=== PATIENT | female | born 1970 | race Caucasian/White ===

== ENCOUNTER 2020-03-20 20:08 | Inpatient (IN) ==
--- NOTE | 2020-03-20 20:37 | DR.GENAD ---
HPI Time Seen Time Seen by Provider: 03/20/20 20:35 PCP Primary Care Physician: JOSE HPI Comment HPI Comment: PATIENT IS 49YR OLD FEMALE IN ER WITH FEVER, COUGH, SOB AND CHEST PAIN NOTED TOD[place]. COUGH STARTED 3 DAYS AGO AND COVID 19 TEST WAS DONE AND IS PENDING. SHE IS WEAK AND DRAINED OF ENERGY. CHEST PAIN IS TIGHTNESS AND IS 8/19. PATIENT DID NOT TAKE MEDICATION FOR PAIN. COUGH IS NON PRODUCTIVE. OXYGEN SATURATION 82% ON RA. IN ER. DENIES RECNT TRAVEL OR CAONTACT WITH COVID PATIENT. Complaint/Symptoms Chief Complaint Doctors Comments: INCREASING SOB, CHEST PAIN AND FEVER THAT STARTED TODAY. HAVE HAD COUGH FOR 3 DAYS. Chief Complaint:: PT AMBULATORY IN ED STATING SHE HAD KILGORE TEST SATURDAY AND TODAY SHE HAS A BURNING IN HER CHEST. C/O FEVER AND COLD SYMPTOMS WITH SOB. COVID-19 Coronavirus risk:travel/contact w/high risk person: No Has patient experienced Coronavirus symptoms: Yes Coronavirus symptoms experienced: Fever, Coughing and Shortness of Breath Nurses notes reviewed Nurses Notes Review: Yes Source History Provided: Patient Mode of Arrival Mode of Arrival: Ambulatory Timing Onset of Chief Complaint: 03/17/20 Came on: Suddenly Duration Duration: Constant Duration: Days Location Location: HISTORY DIABETES AND HTN. Severity Severity: Moderate Modifying Factors Worsens:: EXERTION. Improves:: REST. Associated Signs and Symptoms Associated Signs and Symptoms: FEVER, COUGH. PMH PMH Past Medical History: Yes Past Medical History: Diabetes and Hypertension Past Surgical History: Yes Surgical History: , Cholecystectomy and Tonsillectomy Family History History of Family Medical Conditions: Yes Family Medical History: Diabetes Mellitus, Cancer and Hypertension Social History Does patient currently use any type of tobacco product: No Have you used tobacco products in the last 12 months: No Type of Tobacco Use: None Does any household member use tobacco: No Alcohol Use: None Do you use any recreational Drugs:: No Lives With: Alone Lives Where: Home Travel Risk Coronavirus risk:travel/contact w/high risk person: No Has patient experienced Coronavirus symptoms: Yes Coronavirus symptoms experienced: Fever, Coughing and Shortness of Breath Infectious screening In the last 2 months have you had wt loss of >10#?: NO Have you had fever, night sweats or hemotysis?: No Have you traveled outside the country in the last 6 months?: No Isolation: Droplet ROS Review of Systems Constitutional: See HPI, Fever, Weakness and Fatigue Eyes: No Symptoms Reported and See HPI; negative Blurred Vision and Diplopia ENTM: See HPI, Nose Congestion and Throat Pain; negative Ear Pain and Nose Discharge Respiratoy: See HPI, Non-Productive Cough, Short of Breath and Wheezing Cardiovascular: See HPI, Chest Pain and Palpitations; negative Edema Gastrointestinal/Abdominal: No Symptoms Reported and See HPI; negative Abdominal Pain, Diarrhea, Nausea and Vomiting Genitourinary: No Symptoms Reported and See HPI; negative Dysuria, Frequency and Hematuria Neurological: See HPI, Headache and Weakness; negative Dizziness Musculoskeletal: See HPI and Muscle Pain; negative Back Pain Integumentary: No Symptoms Reported and See HPI; negative Change in Color, Rash and Juandice Hematologic/Lymphatic: No Symptoms Reported and See HPI; negative Easy Bruising and Swollen Glands Endocrine: No Symptoms Reported and See HPI; negative Increased Thirst and Increased Urine Psychiatric: No Symptoms Reported and See HPI All Other Systems: Reviewed and Negative PE Vital Signs Vitals: Temperature 98.6 F Pulse Rate 95 Respiratory Rate 36 Blood Pressure 164/76 O2 Sat by Pulse Oximetry 93 General Limitations: No Limitations General Appearance: Alert and In Distress Head Head Exam: Normal Inspection and Atraumatic Eyes Eye exam: Normal Appearance, PERRL and EOMI; negative Scleral Icterus and Conjunctival Injection ENT ENT Exam: Normal Exam and Normal External Ear Exam; negative Normal Oropharynx and TM's Normal Bilaterally External Ear Exam: Normal External Inspection; negative Mastoid Tenderness TM/Canal Exam: Bilateral: Normal Nose Exam: Normal Nose Exam; negative Sinus Tenderness, Nasal Deviation and Septal Hematoma Mouth Exam: Normal Inspection; negative Lip Swelling and Tongue Swelling Throat Exam: Tonsillar Erythema; negative Tonsillomegaly and Tonsillar Exudate Neck Neck Exam: Normal Inspection and Trachea Midline; negative Tenderness and Lymphadenopathy Chest Chest Inspection: Normal Inspection and Symmetric Chest Wall Rise; negative Tenderness Respiratory Respiratory Exam: Normal Lung Sounds Bilat and Respiratory Distress; negative Accessory Muscle Use and Chest Wall Tenderness Respiratory Exam: Bilateral: Wheezing and Bilateral: Rhonchi and Lower: Wheezing and Lower: Rhonchi Cardiovascular Cardiovascular Exam: Regular Rate, Normal Rhythm and Normal Heart Sounds; negat rica Systolic Murmur and Diastolic Murmur Abdominal Exam Abdominal Exam: Normal Inspection, Normal Bowel Sounds and Soft; negative Tenderness Extremities Extremities Exam: Normal Inspection Back Back Exam: Normal Inspection; negative (R) CVA Tenderness and (L) CVA Tenderness Neurologic Neurological Exam: Alert and Oriented X3 Psychiatric Psychiatric Exam: Normal Affect and Normal Mood Skin Skin Exam: Warm, Dry, Intact and Normal Color MDM Differential Diagnosis Differential Diagnosis: PNEUMONIA, HYPOXIA, BRONCHITIS, COVID 19, [place], ANGINA, HTN, DM. COURSE Treatment Treatment: SEE ORDERS. NS 100CC/HR, ROCEPHIN 1GM IVPB. IN ER. OXYGEN 5L/M, OXYGEN SATURATION IMPROVED. Consultation Consultation Comments: DISCUSSED PATIENT WITH DR. ZUÑIGA, SHE WILL ADMIT PATIENT. Education/Counseling Education/Counseling: Patient Educated On: Diagnosis ROR Labs Reviewed Laboratory Results Reviewed?: Yes Result Diagrams: 03/23/20 05:30 03/23/20 05:30 Laboratory: 03/20/20 22:15 Blood Blood Culture - Preliminary 03/20/20 22:10 Blood Blood Culture - Preliminary WBC 4.9 X10^3/uL (3.6-10.0) 03/20/20 22:15 RBC 4.82 X10^6/uL (3.5-5.4) 03/20/20 22:15 Hgb 11.9 g/dL (12.0-16.0) L 03/20/20 22:15 Hct 36.2 % (36.0-47.0) 03/20/20 22:15 MCV 75.1 fL (80.0-100.0) L 03/20/20 22:15 MCH 24.7 pg (27.0-34.0) L 03/20/20 22:15 MCHC 32.9 g/dL (33.0-35.0) L 03/20/20 22:15 RDW 16.9 % (11.6-16.5) H 03/20/20 22:15 Plt Count 125 X10^3/uL (150.0-450.0) L 03/20/20 22:15 Plt Count Comment Decreased (ADEQUATE) A 03/20/20 22:15 MPV 9.2 fL (7.4-11.0) 03/20/20 22:15 Neut % (Auto) 71.8 % (42.0-75.0) 03/20/20 22:15 Lymph % (Auto) 19.7 % (21.0-51.0) L 03/20/20 22:15 [place] % (Auto) 7.9 % (0.0-13.0) 03/20/20 22:15 Eos % (Auto) 0.0 % (0.9-2.9) L 03/20/20 22:15 Baso % (Auto) 0.6 % (0.2-1.0) 03/20/20 22:15 Neut # (Auto) 3.5 x10^3/uL (2.2-4.8) 03/20/20 22:15 Lymph # (Auto) 1.0 X10^3/uL (1.3-2.9) L 03/20/20 22:15 [place] # (Auto) 0.4 x10^3/uL (0.3-0.8) 03/20/20 22:15 Eos # (Auto) 0.0 x10^3/uL (0.0-0.2) 03/20/20 22:15 Baso # (Auto) 0.0 X10^3/uL (0.0-0.1) 03/20/20 22:15 Absolute Nucleated RBC 0.0 /100WBC 03/20/20 22:15 Plt Morphology Comment Normal (NORMAL) 03/20/20 22:15 RBC Morphology Abnormal (NORMAL) A 03/20/20 22:15 Hypochromasia Slight A 03/20/20 22:15 Sample Site Lb 03/20/20 21:10 ABG pH 7.460 (7.35-7.45) H 03/20/20 21:10 ABG pCO2 37.0 mmHg (35.0-45.0) 03/20/20 21:10 ABG pO2 55.0 mmHg (80.0-100.0) L 03/20/20 21:10 ABG HCO3 26.3 mmol/L (22-26) H 03/20/20 21:10 ABG O2 Saturation 90.0 % (90-100) 03/20/20 21:10 ABG Base Excess 2.5 mmol/L (-2.0-2.0) H 03/20/20 21:10 Clarke Test Na 03/20/20 21:10 A-a Gradient 98.0 mmHg 03/20/20 21:10 FiO2 28.0 03/20/20 21:10 Blood Gas Comments [place] [facility] well-mtf 03/20/20 21:10 Sodium 138 mmol/L (136-145) 03/20/20 22:15 Corrected Sodium 140 mmol/L (136-145) 03/20/20 22:15 Potassium 3.3 mmol/L (3.5-5.1) L 03/20/20 22:15 Chloride 99 mmol/L (98-107) 03/20/20 22:15 Carbon Dioxide 26.3 mmol/L (21-32) 03/20/20 22:15 BUN 8 mg/dL (7-18) 03/20/20 22:15 Creatinine 1.00 mg/dL (0.55-1.02) 03/20/20 22:15 Est GFR (MDRD) Af Amer > 60 (>60) 03/20/20 22:15 Est GFR (MDRD) Non-Af > 60 (>60) 03/20/20 22:15 Glucose 197 mg/dL (65-99) H 03/20/20 22:15 Calcium 8.1 mg/dL (8.5-10.1) L 03/20/20 22:15 Corrected Calcium TNP 03/20/20 22:15 Total Bilirubin 0.70 mg/dL (0.2-1.0) 03/20/20 22:15 AST 42 Units/L (15-37) H 03/20/20 22:15 ALT 41 Units/L (12-78) 03/20/20 22:15 Alkaline Phosphatase 56 Units/L (46-116) 03/20/20 22:15 Creatine Kinase 640 Units/L (26-192) H 03/20/20 22:15 CK-MB (CK-2) < 1.0 ng/mL (0-4.0) 03/20/20 22:15 CK/CKMB % Calc 0.2 % (<4) 03/20/20 22:15 Troponin I < 0.02 ng/mL (0-1.5) 03/20/20 22:15 Total Protein 7.8 g/dL (6.4-8.2) 03/20/20 22:15 Albumin 3.4 g/dL (3.4-5.0) 03/20/20 22:15 Globulin 4.4 g/dL (2.5-4.5) 03/20/20 22:15 Albumin/Globulin Ratio 0.8 Ratio (1.1-2.1) L 03/20/20 22:15 RSV Nasal Swab Negative (NEGATIVE) 03/20/20 23:15 Influenza Type A Ag Negative-presumptive (NEGATIVE) 03/20/20 23:15 Influenza Type B Ag Negative-presumptive (NEGATIVE) 03/20/20 23:15 S. pyogenes (TEM-PCR) Not detected (NOT DETECT) 03/20/20 23:15 XRAY XRAY Interpreted by: Radiologist (REPORT NOTED AND DISCUSSED WITH PATIENT.) EKG Rate: 99 Bellamy: LAD Rhythm: NSR Block: None Hypertrophy: None ST: Old, Ant, Infarct and Nonsp Opioid Opioid Risk Tool Age (Duy box if 16-45): No History of Preadolescent Sexual Abuse: No Total: 0 Total Score Risk Category: Low Risk Copyright: Sammy PETERSEN predicting aberrant behaviors Diagnosis Discharge Problem: Hypoxia Pneumonia Qualifiers: Pneumonia type: due to unspecified organism Laterality: bilateral Lung location: lower lobe of lung Qualified Code(s): J18.9 - Pneumonia, unspecified organism
[2020-03-20 21:14] LABS: ABG BASE EXCESS 2.5 mmol/L (-2.0-2.0); ABG HCO3 26.3 mmol/L (22-26)
[2020-03-20 22:32] LABS: BASOPHILS % (AUTO) 0.6 % (0.2-1.0); HEMATOCRIT 36.2 % (36.0-47.0); HEMOGLOBIN 11.9 g/dL (12.0-16.0); LYMPHOCYTES % (AUTO) 19.7 % (21.0-51.0); MEAN CORPUSCULAR HEMOGLOBIN 24.7 pg (27.0-34.0); MEAN CORPUSCULAR HGB CONC 32.9 g/dL (33.0-35.0); MEAN CORPUSCULAR VOLUME 75.1 fL (80.0-100.0); MEAN PLATELET VOLUME 9.2 fL (7.4-11.0); MONOCYTES # (AUTO) 0.4 x10^3/uL (0.3-0.8); MONOCYTES % (AUTO) 7.9 % (0.0-13.0); NEUTROPHILS # (AUTO) 3.5 x10^3/uL (2.2-4.8); NEUTROPHILS % (AUTO) 71.8 % (42.0-75.0); PLATELET COUNT 125 X10^3/uL (150.0-450.0); RED BLOOD COUNT 4.82 X10^6/uL (3.5-5.4); RED CELL DISTRIBUTION WIDTH 16.9 % (11.6-16.5); WHITE BLOOD COUNT 4.9 X10^3/uL (3.6-10.0)
[2020-03-20 22:44] LABS: PLATELET MORPHOLOGY COMMENT NORMAL (NORMAL)
[2020-03-20 22:45] LABS: HYPOCHROMASIA SLIGHT
[2020-03-20 22:50] LABS: ALANINE AMINOTRANSFERASE 41 Units/L (12-78); ALBUMIN 3.4 g/dL (3.4-5.0); ALKALINE PHOSPHATASE 56 Units/L (46-116); ASPARTATE AMINO TRANSFERASE 42 Units/L (15-37); BLOOD UREA NITROGEN 8 mg/dL (7-18); CALCIUM 8.1 mg/dL (8.5-10.1); CARBON DIOXIDE 26.3 mmol/L (21-32); CHLORIDE 99 mmol/L (98-107); CKMB % 0.2 % (<4); COR NA(FOR HYPERGLY) 140 mmol/L (136-145); CREATINE KINASE 640 Units/L (26-192); CREATINE KINASE MB < 1.0 ng/mL (0-4.0); SODIUM 138 mmol/L (136-145); TOTAL PROTEIN 7.8 g/dL (6.4-8.2); TROPONIN I < 0.02 ng/mL (0-1.5); eGFR NON BLACK RACES > 60 (>60)
--- NOTE | 2020-03-20 22:58 | RAD ---
HISTORYPT STATED SHE HAD [facility] TEST SATURDAY AND TODAY SHE HAS A BURNING IN HER CHEST. C/O FEVER AND COLD SYMPTOMS WITH SOB.STUDYCHEST, 1 VIEWCOMPARISONNoneFINDINGSThe heart is mildly enlarged. The pulmonary vessels are engorged centrally. There are hazy perihilar and bibasilar opacities. No effusion is seen.IMPRESSIONMild cardiomegaly and mild central pulmonary congestion.Hazy perihilar and bibasilar opacities could represent multisegmental bronchopneumonia. Recommend short-term follow-up.Electronically signed by: ABRAHAN DUBON (March 20, 2020 22:56:36)
[2020-03-20] MEDS ORDERED: ROCEPHIN VIAL 1 GRAM 1 G in NS 100 ML IV + SPIKE MINIBAG* 100 ML IV ONE (23:01)
[2020-03-20] MEDS ORDERED: NS 100 ML IV + SPIKE MINIBAG* 100 ML IV ONE (23:12)
[2020-03-20] MEDS ORDERED: NS 1000 ML 1,000 ML ONE (23:12)
[2020-03-20] MEDS ORDERED: ROCEPHIN VIAL 1 GRAM ONE (23:12)
[2020-03-20] MEDS ORDERED: NS 1/2 1000 ML IV 1,000 ML IV ONE (23:31)
[2020-03-20] MEDS: NS 1/2 1000 ML IV 1,000 ML IV SCH (23:45)
[2020-03-20 23:51] LABS: BILIRUBIN,URINE 1+ (NEGATIVE); BLOOD/HEMOGLOBIN,URINE 3+ (NEGATIVE); GLUCOSE, URINE 1+ (NEGATIVE); KETONES,URINE 4+ (NEGATIVE); LEUKOCYTE ESTERASE ,URINE 1+ (NEGATIVE); NITRITES,URINE NEGATIVE (NEGATIVE); PROTEIN,URINE 3+ (NEGATIVE); UROBILINOGEN,URINE 2+ (NORMAL)
[2020-03-20] MEDS ORDERED: OXYCODONE ACETAMINOPHEN PO PRN (23:52)
[2020-03-20] MEDS ORDERED: TESSALON PERLES PO PRN (23:52)
[2020-03-20] MEDS ORDERED: ROBITUSSIN AC PO PRN (23:52)
[2020-03-21] LABS: AMORPHOUS SEDIMENT,UR 2+ /HPF (NEGATIVE); APPEARANCE,URINE SLIGHTLY HAZY (CLEAR); BACTERIA,URINE TRACE /HPF (NEGATIVE); COLOR,URINE DARK YELLOW (YELLOW); HYALINE CASTS, URINE FEW /LPF (NEGATIVE); MUCUS,URINE FEW /HPF (NEGATIVE); SQUAMOUS EPITHELIAL CELL,UR FEW /HPF (NEGATIVE)
[2020-03-21 00:01] LABS: RSV AG DETECTION NEGATIVE (NEGATIVE)
[2020-03-21] MEDS ORDERED: TYLENOL 325 MG TAB PO PRN (00:13)
[2020-03-21] MEDS ORDERED: ROXICODONE TAB 5 MG PO PRN (00:13)
[2020-03-21] MEDS: ZITHROMAX INJ 500 MG VIAL 500 MG in D5W 250 ML IV 250 ML IV SCH ×2 (00:47→21:33)
[2020-03-21] MEDS ORDERED: RESTORIL CAP 30 MG PO ONE (00:59)
[2020-03-21] MEDS: TYLENOL 325 MG TAB PO PRN ×4 (01:09→21:00)
[2020-03-21] MEDS: RESTORIL CAP 30 MG PO SCH ×2 (01:10→20:55)
[2020-03-21 01:39] VITALS: BMI 56.5
[2020-03-21 06:10] LABS: ALANINE AMINOTRANSFERASE 34 Units/L (12-78); ALKALINE PHOSPHATASE 52 Units/L (46-116); ASPARTATE AMINO TRANSFERASE 39 Units/L (15-37); BLOOD UREA NITROGEN 8 mg/dL (7-18); CALCIUM 7.7 mg/dL (8.5-10.1); CARBON DIOXIDE 26.5 mmol/L (21-32); CHLORIDE 99 mmol/L (98-107); CKMB % 0.2 % (<4); COR CA(FOR HYPOALB) 8.5 mg/dL (8.5-10.1); COR NA(FOR HYPERGLY) 141 mmol/L (136-145); CREATINE KINASE 631 Units/L (26-192); CREATINE KINASE MB < 1.0 ng/mL (0-4.0); SODIUM 138 mmol/L (136-145); TOTAL PROTEIN 7.4 g/dL (6.4-8.2); TROPONIN I < 0.02 ng/mL (0-1.5); eGFR NON BLACK RACES > 60 (>60)
[2020-03-21 06:18] LABS: BASOPHILS % (AUTO) 0.8 % (0.2-1.0); EOSINOPHILS % (AUTO) 0.1 % (0.9-2.9); HEMATOCRIT 35.5 % (36.0-47.0); HEMOGLOBIN 11.7 g/dL (12.0-16.0); LYMPHOCYTES # (AUTO) 1.3 X10^3/uL (1.3-2.9); LYMPHOCYTES % (AUTO) 31.3 % (21.0-51.0); MEAN CORPUSCULAR HEMOGLOBIN 24.7 pg (27.0-34.0); MEAN CORPUSCULAR HGB CONC 32.9 g/dL (33.0-35.0); MEAN CORPUSCULAR VOLUME 75.1 fL (80.0-100.0); MEAN PLATELET VOLUME 9.7 fL (7.4-11.0); MONOCYTES # (AUTO) 0.3 x10^3/uL (0.3-0.8); MONOCYTES % (AUTO) 7.6 % (0.0-13.0); NEUTROPHILS # (AUTO) 2.6 x10^3/uL (2.2-4.8); NEUTROPHILS % (AUTO) 60.2 % (42.0-75.0); PLATELET COUNT 122 X10^3/uL (150.0-450.0); RED BLOOD COUNT 4.73 X10^6/uL (3.5-5.4); WHITE BLOOD COUNT 4.3 X10^3/uL (3.6-10.0)
[2020-03-21] MEDS ORDERED: POTASSIUM CHL 40 MEQ/NS 0.45% 500 ML IV PRN (06:35)
[2020-03-21] MEDS ORDERED: KLOR-CON PO PRN (06:35)
[2020-03-21] MEDS ORDERED: POTASSIUM CHL 60 MEQ/NS 0.45% 500 ML IV PRN (06:35)
[2020-03-21] MEDS ORDERED: K-RIDER 10 MEQ/NS 100 ML 10 MEQ/100 ML BAG IV PRN (06:35)
[2020-03-21] MEDS ORDERED: MICRO K EXTEN CAP 10 MEQ PO PRN (06:35)
[2020-03-21] MEDS ORDERED: K-DUR TAB 20 MEQ PO PRN (06:35)
[2020-03-21 06:50] LABS: PLATELET MORPHOLOGY COMMENT NORMAL (NORMAL)
[2020-03-21] MEDS ORDERED: NS 1/2 1000 ML IV 1,000 ML IV ONE (08:02)
[2020-03-21] MEDS: CHLORTHALIDONE PO SCH (08:06)
[2020-03-21] MEDS: NS 1/2 1000 ML IV 1,000 ML IV SCH ×2 (08:06→17:02)
[2020-03-21] MEDS: NORVASC TAB 10 MG PO SCH ×2 (08:06→20:59)
[2020-03-21] MEDS: VSL#3 PO SCH (08:06)
[2020-03-21] MEDS: MAGNESIUM SULFATE 1 GRAM/100 mL PREMIX 1 GM/100 ML BAG IV PRN ×2 (08:07→09:26)
[2020-03-21] MEDS: LOVENOX INJ 40 MG SYR SC SCH (09:27)
[2020-03-21] MEDS: PLAQUENIL PO SCH ×2 (10:51→20:56)
[2020-03-21 11:31] LABS: CKMB % 0.2 % (<4); CREATINE KINASE 684 Units/L (26-192); CREATINE KINASE MB < 1.0 ng/mL (0-4.0); TROPONIN I < 0.02 ng/mL (0-1.5)
[2020-03-21] MEDS: POTASSIUM CHLORIDE LIQ 20 MEQ UDC PO PRN (18:29)
[2020-03-21] MEDS ORDERED: GLUCOPHAGE ONE (20:46)
[2020-03-21] MEDS: GLUCOPHAGE PO SCH (20:53)
[2020-03-21] MEDS: JANUVIA PO SCH (20:54)
[2020-03-21] MEDS: ROCEPHIN VIAL 1 GRAM 1 G in NS 100 ML IV + SPIKE MINIBAG* 100 ML IV SCH (20:55)
[2020-03-21] MEDS ORDERED: SITAGLIPTIN METFORMIN PO SCH (21:00)
[2020-03-21] MEDS ORDERED: RESTORIL CAP 30 MG PO SCH (21:00)
--- NOTE | 2020-03-21 22:47 | DR.H&P ---
H&P - History & Physical for Day of: H&P Date: 03/20/20 - Chief Complaint Chief Complaint: COUGH, SOB, FEVER, BURNING IN CHEST, EXPOSURE TO COVID-19 - History of Present Illness History of Present Illness: IS A 49 YEAR OLD PATIENT OF OURS. SHE PRESENTED TO THE ER WITH COMPLAINTS OF FEVER, COUGH, SHORTNESS OF BREATH, AND BURNING IN HER CHEST. COUGH IS NON-PRODUCTIVE. SHE REPORTS THAT SYMPTOMS STARTED APPROXIMATELY 5 DAYS AGO. SHE WAS TESTED FOR COVID-19 ON 03/18/20, BUT RESULTS ARE PENDING. PATIENT REPORTED THAT HER MOTHER TESTED POSITIVE FOR COVID- 19 AND SHE HAS BEEN EXPOSED. PMH INCLUDES HTN AND DIABETES MELLITUS TYPE II. EX AMINATION REVEALED SCATTERED WHEEZING THROUGHOUT. ON ARRIVAL TO THE ER, HER VITALS WERE 98.6-103-24-92%RA-151/67. LABS WERE OBTAINED. ABNORMAL LAB VALUES INCLUDE THE FOLLOWING: HGB 11.9, PLT COUNT 125, POTASSIUM 3.3, GLUCOSE 197, CALCIUM 8.1, AST 42, CREATINE KINASE 640. A URINALYSIS WAS OBTAINED AND REVEALED: WBC 0-2, RBC 5-10, BACTERIA TRACE, LEUKOCYTES 1+, OCCULT BLOOD 3+, KETONES 4+, PROTEIN 3+. RSV NEGATIVE, INFLUENZA NEGATIVE, STREP NEGATIVE. AN ABG WAS OBTAINED AND REVEALED: PH 7.460, PC02 37.0, P02 55.0, HC03 26.3, 02 SATURATION 90.0, BASE EXCESS 2.5. BLOOD CULTURES WERE OBTAINED. AN EKG WAS OBTAINED AND REVEALED: SINUS RHYTHM WITH HR 99. A CHEST XRAY WAS OBTAINED AND REVEALED: Mild cardiomegaly and mild central pulmonary congestion. Hazy perihilar and bibasilar opacities could represent multisegmental bronchopneumonia. Recommend short-term follow-up. SHE WAS ADMITTED FOR FURTHER EVALUATION AND TREATMENT OF PENUMONIA, HYPOXIA, EXPOSURE TO COVID-19, AND DM TYPE II. SHE WAS STARTED ON THE PNEUMONIA PROTOCOL WITH 1/2NS AT 75 ML/HR, ROCEPHIN 1G IV HS, AZITHROMYCIN 500MG IV DAILY, TESSALON 200MG PO BID PRN, LOVENOX 40MG SC DAILY, PLAQUENIL 200MG PO BID, ROBITUSSIN DM 5ML PO Q8H PRN, THE POTASSIUM PROTOCOL. WE WILL REVIEW HOME MEDICATIONS. SERIAL CARDIAC ENZYMES AND EKGS WERE ORDERED. WE WILL ORDER FOR A CHEST CT WITH CONTRAST TO BE OBTAINED. OTHERWISE, WE PLAN TO FOLLOW UP WITH AM LABS AND CONTINUE TO MONITOR. - Past Medical History Past Medical History: Hypertension, Diabetes - Past Surgical History Surgical History: , Cholecystectomy, Tonsillectomy - Family History Family Medical History: Hypertension - Social History Does patient currently use any type of tobacco product: No Have you used tobacco products in the last 12 months: No Type of Tobacco Use: None Does any household member use tobacco: No Alcohol Use: None Drug Use: None - Medications Home Medications: No Known Drug Allergies Allergy (Verified 03/20/20 20:17) CONTINUE taking the following medications amlodipine 10 mg PO BID 03/20/20 [History] amoxicillin-pot clavulanate 1 tab PO BID 03/20/20 [History] benzonatate 200 mg PO BID PRN 03/20/20 [History] chlorthalidone 25 mg PO DAILY 03/20/20 [History] codeine-guaifenesin [Guaiatussin AC] 5 ml PO Q8H PRN 03/20/20 [History] ergocalciferol (vitamin D2) [Vitamin D2] 1,250 mcg PO WEEKLY 03/20/20 [History] oxycodone-acetaminophen 7.5 tab PO QID PRN 03/20/20 [History] sitagliptin-metformin [Janumet] 2 tab PO HS 03/20/20 [History] temazepam 30 mg PO HS 03/20/20 [History] - Review of Systems Constitutional: See HPI, Fever, Chills, Weakness Eyes: No Symptoms Reported ENT: No Symptoms Reported Respiratory: See HPI, Cough, Shortness of Breath, SOB with Excertion, Wheezing Cardiovascular: Chest Pain Gastrointestinal: No Symptoms Reported Genitourinary: No Symptoms Reported Musculoskeletal: No Symptoms Reported Skin: No Symptoms Reported Neurological: Weakness - Physical Exam Vital Signs: Temperature 100.5 F Pulse Rate 95 Respiratory Rate 25 Blood Pressure 167/74 O2 Sat by Pulse Oximetry 94 Oriented: Normal Eyes: Normal Ear: Normal Nose: Normal Throat: Normal Respiratory: Wheezes Throughout Cardiovascular: Normal : Normal Auscultation: Bowel Sounds: Normal Palpation: Normal Tenderness: Normal Skin: Normal Musculoskeletal: Normal Psychiatric: Normal Mood Description: Calm Affect: Normal Speech Pattern: Clear - Assessment/Plan (1) Pneumonia Qualifiers: Pneumonia type: due to unspecified organism Laterality: bilateral Lung location: lower lobe of lung Qualified Code(s): J18.9 - Pneumonia, unspecified organism Status: Acute Plan: ADMIT, 1/2NS AT 75 ML/HR, ROCEPHIN 1G IV HS, AZITHROMYCIN 500MG IV DAILY, TESSALON 200MG PO BID PRN, LOVENOX 40MG SC DAILY, PLAQUENIL 200MG PO BID, ROBITUSSIN DM 5ML PO Q8H PRN, THE POTASSIUM PROTOCOL, OBTAIN CHEST CT IN AM (2) Hypoxia Status: Acute (3) Exposure to COVID-19 virus Status: Acute Plan: TEST PENDING, CONTINUE TO MONITOR (4) Diabetes mellitus Qualifiers: Diabetes mellitus type: type 2 Diabetes mellitus intermodal truck driver insulin use: with intermodal truck driver use Diabetes mellitus complication status: with hyperglycemia Qualified Code(s): E11.65 - Type 2 diabetes mellitus with hyperglycemia; Z79.4 - custodial (current) use of insulin Status: Acute - Allergies Allergies/Adverse Reactions: Allergies Allergy/AdvReac Type Severity Reaction Status Date / Time No Known Drug Allergies Allergy Verified 03/20/20 20:17
[2020-03-22] MEDS: POTASSIUM CHLORIDE LIQ 20 MEQ UDC PO PRN (04:10)
[2020-03-22] MEDS: TYLENOL 325 MG TAB PO PRN ×3 (04:10→22:00)
[2020-03-22] MEDS: NS 1/2 1000 ML IV 1,000 ML IV SCH ×4 (04:11→23:20)
[2020-03-22 05:17] LABS: BASOPHILS % (AUTO) 0.5 % (0.2-1.0); HEMATOCRIT 39.1 % (36.0-47.0); HEMOGLOBIN 12.8 g/dL (12.0-16.0); LYMPHOCYTES # (AUTO) 0.8 X10^3/uL (1.3-2.9); LYMPHOCYTES % (AUTO) 11.7 % (21.0-51.0); MEAN CORPUSCULAR HEMOGLOBIN 25.1 pg (27.0-34.0); MEAN CORPUSCULAR HGB CONC 32.8 g/dL (33.0-35.0); MEAN CORPUSCULAR VOLUME 76.5 fL (80.0-100.0); MEAN PLATELET VOLUME 9.7 fL (7.4-11.0); MONOCYTES # (AUTO) 0.3 x10^3/uL (0.3-0.8); MONOCYTES % (AUTO) 5.1 % (0.0-13.0); NEUTROPHILS # (AUTO) 5.5 x10^3/uL (2.2-4.8); NEUTROPHILS % (AUTO) 82.7 % (42.0-75.0); PLATELET COUNT 146 X10^3/uL (150.0-450.0); RED CELL DISTRIBUTION WIDTH 16.9 % (11.6-16.5); WHITE BLOOD COUNT 6.7 X10^3/uL (3.6-10.0)
[2020-03-22 05:32] LABS: ALANINE AMINOTRANSFERASE 43 Units/L (12-78); ALBUMIN 3.4 g/dL (3.4-5.0); ALKALINE PHOSPHATASE 57 Units/L (46-116); ASPARTATE AMINO TRANSFERASE 47 Units/L (15-37); BLOOD UREA NITROGEN 8 mg/dL (7-18); CALCIUM 8.1 mg/dL (8.5-10.1); CARBON DIOXIDE 28.5 mmol/L (21-32); CHLORIDE 96 mmol/L (98-107); COR NA(FOR HYPERGLY) 138 mmol/L (136-145); MAGNESIUM 2.2 mg/dL (1.7-2.9); SODIUM 135 mmol/L (136-145); TOTAL PROTEIN 8.3 g/dL (6.4-8.2); eGFR NON BLACK RACES 50 (>60)
[2020-03-22 06:14] LABS: PLATELET MORPHOLOGY COMMENT NORMAL (NORMAL)
[2020-03-22 06:15] LABS: HYPOCHROMASIA SLIGHT
[2020-03-22 07:28] LABS: ERYTHROCYTE SEDIMENTATION RATE 38 MM/HOUR (0-20)
[2020-03-22] MEDS ORDERED: NS 1/2 1000 ML IV 1,000 ML IV ONE ×2 (07:39→23:16)
[2020-03-22] MEDS: LOVENOX INJ 40 MG SYR SC SCH (08:00)
[2020-03-22] MEDS: CHLORTHALIDONE PO SCH (09:00)
[2020-03-22] MEDS: VSL#3 PO SCH (09:00)
[2020-03-22] MEDS: PLAQUENIL PO SCH ×2 (09:00→20:17)
[2020-03-22] MEDS: NORVASC TAB 10 MG PO SCH ×2 (09:00→20:20)
[2020-03-22 10:08] LABS: ABG HCO3 27.6 mmol/L (22-26)
[2020-03-22 10:10] LABS: ABG ALLEN TEST POS
--- NOTE | 2020-03-22 10:38 | RAD ---
HISTORYPneumonia. COVID-19 positive. Fever.STUDYCHEST, 1 VIEWCOMPARISONMay 2019.FINDINGSThe trachea is midline. The cardiac silhouette is enlarged. There are patchy airspace and interstitial opacities throughout both lungs. There is no significant effusion or pneumothorax. The bony thorax is unremarkable.IMPRESSION1. Findings consistent with multifocal pneumonia.2. Cardiomegaly.Electronically signed by: BEENA HALEY (March 22, 2020 10:36:32)
[2020-03-22] MEDS ORDERED: DIFLUCAN PO SCH (15:00)
[2020-03-22] MEDS: DIFLUCAN PO SCH (15:05)
[2020-03-22] MEDS: TUSSIONEX PENNKINETIC SUSP PO SCH (15:05)
[2020-03-22] MEDS: TESSALON PERLES PO SCH ×2 (15:05→21:28)
[2020-03-22] MEDS: SYMBICORT INH 160/4.5 mcg IN SCH ×2 (17:39→20:06)
[2020-03-22] MEDS ORDERED: GLUCOPHAGE ONE (20:10)
[2020-03-22] MEDS: GLUCOPHAGE PO SCH (20:14)
[2020-03-22] MEDS: ROCEPHIN VIAL 1 GRAM 1 G in NS 100 ML IV + SPIKE MINIBAG* 100 ML IV SCH (20:16)
[2020-03-22] MEDS: JANUVIA PO SCH (20:16)
[2020-03-22] MEDS: RESTORIL CAP 30 MG PO SCH (20:16)
[2020-03-22] MEDS: ZITHROMAX INJ 500 MG VIAL 500 MG in D5W 250 ML IV 250 ML IV SCH (22:30)
[2020-03-23] MEDS: TUSSIONEX PENNKINETIC SUSP PO SCH ×2 (03:29→16:16)
[2020-03-23 05:46] LABS: BASOPHILS % (AUTO) 0.5 % (0.2-1.0); HEMATOCRIT 36.3 % (36.0-47.0); LYMPHOCYTES # (AUTO) 0.7 X10^3/uL (1.3-2.9); LYMPHOCYTES % (AUTO) 10.8 % (21.0-51.0); MEAN CORPUSCULAR VOLUME 75.7 fL (80.0-100.0); MEAN PLATELET VOLUME 9.1 fL (7.4-11.0); MONOCYTES # (AUTO) 0.3 x10^3/uL (0.3-0.8); MONOCYTES % (AUTO) 5.2 % (0.0-13.0); NEUTROPHILS # (AUTO) 5.3 x10^3/uL (2.2-4.8); NEUTROPHILS % (AUTO) 83.5 % (42.0-75.0); PLATELET COUNT 150 X10^3/uL (150.0-450.0); RED CELL DISTRIBUTION WIDTH 16.9 % (11.6-16.5); WHITE BLOOD COUNT 6.4 X10^3/uL (3.6-10.0)
[2020-03-23 06:01] LABS: ALBUMIN 2.9 g/dL (3.4-5.0); CALCIUM 7.7 mg/dL (8.5-10.1); CARBON DIOXIDE 28.3 mmol/L (21-32); COR CA(FOR HYPOALB) 8.6 mg/dL (8.5-10.1); CREATININE 1.28 mg/dL (0.55-1.02); TOTAL PROTEIN 7.6 g/dL (6.4-8.2)
[2020-03-23 06:05] LABS: HYPOCHROMASIA SLIGHT; PLATELET MORPHOLOGY COMMENT NORMAL (NORMAL)
[2020-03-23] MEDS: TESSALON PERLES PO SCH ×3 (06:08→21:16)
[2020-03-23] MEDS: CHLORTHALIDONE PO SCH (08:36)
[2020-03-23] MEDS: DIFLUCAN PO SCH (08:36)
[2020-03-23] MEDS: PLAQUENIL PO SCH ×2 (08:36→20:22)
[2020-03-23] MEDS: LOVENOX INJ 40 MG SYR SC SCH (08:37)
[2020-03-23] MEDS: VSL#3 PO SCH (08:37)
[2020-03-23] MEDS: NORVASC TAB 10 MG PO SCH ×2 (08:37→20:22)
[2020-03-23] MEDS ORDERED: VITAMIN D (1.25MG) PO SCH (09:00)
[2020-03-23 09:39] LABS: ABG ALLEN TEST POS; ABG BASE EXCESS 3.5 mmol/L (-2.0-2.0); ABG HCO3 27.8 mmol/L (22-26)
[2020-03-23] MEDS: SYMBICORT INH 160/4.5 mcg IN SCH ×2 (09:40→20:32)
[2020-03-23] MEDS: VENTOLIN or PROAIR HFA IN SCH ×5 (09:40→20:33)
[2020-03-23] MEDS: NS 1/2 1000 ML IV 1,000 ML IV SCH ×3 (09:42→20:58)
[2020-03-23 09:44] LABS: CKMB % 0.2 % (<4); CREATINE KINASE 659 Units/L (26-192); CREATINE KINASE MB < 1.0 ng/mL (0-4.0); TROPONIN I < 0.02 ng/mL (0-1.5)
--- NOTE | 2020-03-23 10:18 | PCM.PROG ---
Progress Note - Progress Note for Day of Date of Exam: 03/22/20 - Subjective Subjective: IS BEING TREATED FOR COVID-19, PNEUMONIA, HYPOXIA, AND DIABETES. PATIENTS COVID-19 RESULTS WERE REPORTED POSITIVE LATE YESTERDAY AFTERNOON. TODAY, SHE IS ALERT, LYING IN BED ON MORNING ROUNDS. SHE CONTINUES WITH COMPLAINTS OF COUGH AND SHORTNESS OF BREATH TODAY. COUGH IS NON-PRODUCTIVE. SHE REPORTS THAT SHORTNESS OF BREATH IS SLIGHTLY WORSE TODAY. ON EXAMINATION, HEART IS REGULAR IN RATE AND RHYTHM. BILATERAL LUNGS ARE NOTED WITH SCATTERED WHEEZING AND RHONCHI THROUGHOUT. ABDOMEN IS ROUND, SOFT, AND NON-TENDER WITH NORMAL BOWEL SOUNDS NOTED IN ALL QUADRANTS. HER VITALS THIS MORNING ARE: 99.8-95-36-91%NC-122/57. LABS WERE OBTAINED. ABNORMAL LAB VALUES INCLUDE THE FOLLOWING: SODIUM 135, CHLORIDE 96, CREATININE 1.20, GLUCOSE 205, CALCIUM 8.1, AST 47, CRP 161.30, TOTAL PROTEIN 8.3, GLOBULIN 4.9. BLOOD CULTURES ARE PENDING. A CHEST XRAY WAS OBTAINED TODAY AND REVEALED: 1. Findings consistent with multifocal pneumonia.2. Cardiomegaly. SHE IS CURRENTLY RECEIVING 1/2NS AT 75 ML/HR, ROCEPHIN 1G IV HS, AZITHROMYCIN 500MG IV DAILY, TESSALON 200MG PO BID PRN, LOVENOX 40MG SC DAILY, PLAQUENIL 200MG PO BID, ROBITUSSIN DM 5ML PO Q8H PRN, THE POTASSIUM PROTOCOL. TODAY, WE WILL REPEAT AN ABG AND START SYMBICORT 160/4.5MCG 2 PUFFS INHALED BID, AND DIFLUCAN 100MG PO DAILY. OTHERWISE, WE WILL FOLLOW UP WITH AM LABS AND CONTINUE TO MONITOR. - Past Medical Family Social History Past Med/Fam/Surg Hx: No changes since H&P Allergies: Allergies No Known Drug Allergies Allergy (Verified 03/20/20 20:17) - Review of Systems ROS: No change since H&P - Vital Signs and I&O's Vital Signs: Temperature 100.7 F Pulse Rate 103 Respiratory Rate 41 Blood Pressure 126/66 O2 Sat by Pulse Oximetry 87 Intake and Output: Intake & Output 03/20/20 03/21/20 03/22/20 03/23/20 11:59 11:59 11:59 11:59 Intake Total 830 / 830 2390 / 2390 2310 / 2310 Output Total 650 / 650 900 / 900 Balance 180 / 180 1490 / 1490 2309 / 2309 - Physical Exam Oriented: Normal Eyes: Normal Ear: Normal Nose: Normal Throat: Normal Respiratory: Generalized, Wheezes, Rhonchi Cardiovascular: Normal : Normal Auscultation: Bowel Sounds: Normal Palpation: Normal Tenderness: Normal Skin: Normal Musculoskeletal: Normal Psychiatric: Normal Mood Description: Calm Affect: Normal Speech Pattern: Clear, Appropriate - Laboratory and Diagnostics Result Diagrams: 03/23/20 05:30 03/23/20 05:30 Labs: 03/20/20 22:15 Blood Blood Culture - Preliminary 03/20/20 22:10 Blood Blood Culture - Preliminary Laboratory WBC 6.4 X10^3/uL (3.6-10.0) 03/23/20 05:30 RBC 4.80 X10^6/uL (3.5-5.4) 03/23/20 05:30 Hgb 12.0 g/dL (12.0-16.0) 03/23/20 05:30 Hct 36.3 % (36.0-47.0) 03/23/20 05:30 MCV 75.7 fL (80.0-100.0) L 03/23/20 05:30 MCH 25.0 pg (27.0-34.0) L 03/23/20 05:30 MCHC 33.0 g/dL (33.0-35.0) 03/23/20 05:30 RDW 16.9 % (11.6-16.5) H 03/23/20 05:30 Plt Count 150 X10^3/uL (150.0-450.0) 03/23/20 05:30 Plt Count Comment Adequate (ADEQUATE) 03/23/20 05:30 MPV 9.1 fL (7.4-11.0) 03/23/20 05:30 Neut % (Auto) 83.5 % (42.0-75.0) H 03/23/20 05:30 Lymph % (Auto) 10.8 % (21.0-51.0) L 03/23/20 05:30 [place] % (Auto) 5.2 % (0.0-13.0) 03/23/20 05:30 Eos % (Auto) 0.0 % (0.9-2.9) L 03/23/20 05:30 Baso % (Auto) 0.5 % (0.2-1.0) 03/23/20 05:30 Neut # (Auto) 5.3 x10^3/uL (2.2-4.8) H 03/23/20 05:30 Lymph # (Auto) 0.7 X10^3/uL (1.3-2.9) L 03/23/20 05:30 [place] # (Auto) 0.3 x10^3/uL (0.3-0.8) 03/23/20 05:30 Eos # (Auto) 0.0 x10^3/uL (0.0-0.2) 03/23/20 05:30 Baso # (Auto) 0.0 X10^3/uL (0.0-0.1) 03/23/20 05:30 Absolute Nucleated RBC 0.1 /100WBC 03/23/20 05:30 Plt Morphology Comment Normal (NORMAL) 03/23/20 05:30 RBC Morphology Abnormal (NORMAL) A 03/23/20 05:30 Hypochromasia Slight A 03/23/20 05:30 ESR 44 MM/HOUR (0-20) H 03/23/20 05:30 D-Dimer 1140 ng/mL (0-400) H* 03/23/20 05:30 Sample Site Lr 03/23/20 09:30 ABG pH 7.450 (7.35-7.45) 03/23/20 09:30 ABG pCO2 40.0 mmHg (35.0-45.0) 03/23/20 09:30 ABG pO2 51.0 mmHg (80.0-100.0) L 03/23/20 09:30 ABG HCO3 27.8 mmol/L (22-26) H 03/23/20 09:30 ABG O2 Saturation 87.0 % (90-100) L 03/23/20 09:30 ABG Base Excess 3.5 mmol/L (-2.0-2.0) H 03/23/20 09:30 Clarke Test Pos 03/23/20 09:30 A-a Gradient 512.0 mmHg 03/23/20 09:30 FiO2 86.0 03/23/20 09:30 Blood Gas Comments Pt [email or web address] 03/23/20 09:30 Sodium 135 mmol/L (136-145) L 03/23/20 05:30 Corrected Sodium 137 mmol/L (136-145) 03/23/20 05:30 Potassium 3.7 mmol/L (3.5-5.1) 03/23/20 05:30 Chloride 98 mmol/L (98-107) 03/23/20 05:30 Carbon Dioxide 28.3 mmol/L (21-32) 03/23/20 05:30 BUN 11 mg/dL (7-18) 03/23/20 05:30 Creatinine 1.28 mg/dL (0.55-1.02) H 03/23/20 05:30 Est GFR (MDRD) Af Amer 57 (>60) L 03/23/20 05:30 Est GFR (MDRD) Non-Af 47 (>60) L 03/23/20 05:30 Glucose 189 mg/dL (65-99) H 03/23/20 05:30 Calcium 7.7 mg/dL (8.5-10.1) L 03/23/20 05:30 Corrected Calcium 8.6 mg/dL (8.5-10.1) 03/23/20 05:30 Magnesium 2.2 mg/dL (1.7-2.9) 03/22/20 04:39 Ferritin 258 ng/mL (8-252) H 03/23/20 05:30 Total Bilirubin 0.50 mg/dL (0.2-1.0) 03/23/20 05:30 AST 35 Units/L (15-37) 03/23/20 05:30 ALT 30 Units/L (12-78) 03/23/20 05:30 Alkaline Phosphatase 47 Units/L (46-116) 03/23/20 05:30 Lactate Dehydrogenase 283 Units/L (81-234) H 03/21/20 08:45 Creatine Kinase 659 Units/L (26-192) H 03/23/20 05:30 CK-MB (CK-2) < 1.0 ng/mL (0-4.0) 03/23/20 05:30 CK/CKMB % Calc 0.2 % (<4) 03/23/20 05:30 Troponin I < 0.02 ng/mL (0-1.5) 03/23/20 05:30 C-Reactive Protein 206.00 mg/L (0-3.0) H 03/23/20 05:30 Total Protein 7.6 g/dL (6.4-8.2) 03/23/20 05:30 Albumin 2.9 g/dL (3.4-5.0) L 03/23/20 05:30 Globulin 4.7 g/dL (2.5-4.5) H 03/23/20 05:30 Albumin/Globulin Ratio 0.6 Ratio (1.1-2.1) L 03/23/20 05:30 Specimen Type Clean catch urine 03/20/20 23:40 Urine Color Dark yellow (YELLOW) 03/20/20 23:40 Urine Appearance Slightly hazy (CLEAR) 03/20/20 23:40 Urine pH 5.0 (5.0 - 8.0) 03/20/20 23:40 Ur Specific [place] 1.020 (1.000-1.030) 03/20/20 23:40 Urine Protein 3+ (NEGATIVE) 03/20/20 23:40 Urine Glucose (UA) 1+ (NEGATIVE) 03/20/20 23:40 Urine Ketones 4+ (NEGATIVE) 03/20/20 23:40 Urine Occult Blood 3+ (NEGATIVE) 03/20/20 23:40 Urine Nitrite Negative (NEGATIVE) 03/20/20 23:40 Urine Bilirubin 1+ (NEGATIVE) 03/20/20 23:40 Urine Urobilinogen 2+ (NORMAL) 03/20/20 23:40 Ur Leukocyte Esterase 1+ (NEGATIVE) 03/20/20 23:40 Urine RBC 5-10 /HPF (0-3) A 03/20/20 23:40 Urine WBC 0-2 /HPF (0-5) 03/20/20 23:40 Ur Squamous Epith Cells Few /HPF (NEGATIVE) 03/20/20 23:40 Amorphous Sediment 2+ /HPF (NEGATIVE) 03/20/20 23:40 Urine Bacteria Trace /HPF (NEGATIVE) 03/20/20 23:40 Hyaline Casts Few /LPF (NEGATIVE) 03/20/20 23:40 Urine Mucus Few /HPF (NEGATIVE) 03/20/20 23:40 Ur Culture Indicated? No/not indicated 03/20/20 23:40 RSV Nasal Swab Negative (NEGATIVE) 03/20/20 23:15 Influenza Type A Ag Negative-presumptive (NEGATIVE) 03/20/20 23:15 Influenza Type B Ag Negative-presumptive (NEGATIVE) 03/20/20 23:15 S. pyogenes (TEM-PCR) Not detected (NOT DETECT) 03/20/20 23:15 - Plan (1) Pneumonia Status: Acute Qualifiers: Pneumonia type: due to unspecified organism Laterality: bilateral Lung location: lower lobe of lung Qualified Code(s): J18.9 - Pneumonia, unspecified organism Plan: 1/2NS AT 75 ML/HR, ROCEPHIN 1G IV HS, AZITHROMYCIN 500MG IV DAILY, TESSALON 200MG PO TID JOHN, TUSSIONEX 5ML PO Q12H, LOVENOX 40MG SC DAILY, PLAQUENIL 200MG PO BID, THE POTASSIUM PROTOCOL, REPEAT ABG, CONTINUE TO MONITOR (2) COVID-19 virus infection Status: Acute (3) Hypoxia Status: Acute (4) Diabetes mellitus Status: Acute Qualifiers: Diabetes mellitus type: type 2 Diabetes mellitus manager intermediate insulin use: with manager intermediate use Diabetes mellitus complication status: with hyperglycemia Qualified Code(s): E11.65 - Type 2 diabetes mellitus with hyperglycemia; Z79.4 - ad terminal makeup operator (current) use of insulin
--- NOTE | 2020-03-23 10:41 | RAD ---
HISTORYPNEUMONIA, COVID +STUDYCHEST x-ray, 1 VIEWCOMPARISONX-ray from previous dayFINDINGSBilateral lung infiltrates are similar to prior study. No pleural effusion or pneumothorax is seen. Likely persistent cardiomegaly. Shape of the heart suggest possible pericardial effusion.IMPRESSIONBilateral lung infiltrates are similar to prior study.Persistent cardiomegaly is seen and consideration should be given to pericardial effusion. CHF is not excluded.Electronically signed by: Zac Moscoso (March 23, 2020 10:39:58)
[2020-03-23] MEDS: TYLENOL 325 MG TAB PO PRN (11:30)
[2020-03-23] MEDS ORDERED: NS 1/2 1000 ML IV 1,000 ML IV ONE (14:26)
[2020-03-23 15:50] LABS: ABG BASE EXCESS 3.5 mmol/L (-2.0-2.0); ABG HCO3 27.8 mmol/L (22-26)
[2020-03-23] MEDS ORDERED: GLUCOPHAGE ONE (19:37)
[2020-03-23] MEDS: GLUCOPHAGE PO SCH (20:21)
[2020-03-23] MEDS: JANUVIA PO SCH (20:22)
[2020-03-23] MEDS: ROCEPHIN VIAL 1 GRAM 1 G in NS 100 ML IV + SPIKE MINIBAG* 100 ML IV SCH (20:23)
[2020-03-23] MEDS: RESTORIL CAP 30 MG PO SCH (20:23)
[2020-03-23] MEDS ORDERED: MORPHINE SULFATE INJ 2 MG INJ ONE (21:02)
[2020-03-23] MEDS: MORPHINE SULFATE INJ 2 MG INJ IVP PRN (21:14)
[2020-03-23] MEDS: ZITHROMAX INJ 500 MG VIAL 500 MG in D5W 250 ML IV 250 ML IV SCH (21:16)
[2020-03-24] MEDS: VENTOLIN or PROAIR HFA IN SCH ×6 (01:14→21:35)
[2020-03-24] MEDS: TUSSIONEX PENNKINETIC SUSP PO SCH ×2 (03:28→14:34)
[2020-03-24 05:11] LABS: BASOPHILS % (AUTO) 0.5 % (0.2-1.0); HEMATOCRIT 36.1 % (36.0-47.0); LYMPHOCYTES # (AUTO) 0.9 X10^3/uL (1.3-2.9); LYMPHOCYTES % (AUTO) 13.6 % (21.0-51.0); MEAN CORPUSCULAR HEMOGLOBIN 24.8 pg (27.0-34.0); MEAN CORPUSCULAR HGB CONC 33.1 g/dL (33.0-35.0); MEAN CORPUSCULAR VOLUME 74.9 fL (80.0-100.0); MEAN PLATELET VOLUME 8.6 fL (7.4-11.0); MONOCYTES # (AUTO) 0.3 x10^3/uL (0.3-0.8); MONOCYTES % (AUTO) 4.6 % (0.0-13.0); NEUTROPHILS # (AUTO) 5.7 x10^3/uL (2.2-4.8); NEUTROPHILS % (AUTO) 81.3 % (42.0-75.0); PLATELET COUNT 198 X10^3/uL (150.0-450.0); RED BLOOD COUNT 4.82 X10^6/uL (3.5-5.4); RED CELL DISTRIBUTION WIDTH 16.7 % (11.6-16.5)
[2020-03-24 05:20] LABS: ALANINE AMINOTRANSFERASE 29 Units/L (12-78); ALBUMIN 2.9 g/dL (3.4-5.0); ALKALINE PHOSPHATASE 47 Units/L (46-116); ASPARTATE AMINO TRANSFERASE 38 Units/L (15-37); BLOOD UREA NITROGEN 14 mg/dL (7-18); CALCIUM 8.1 mg/dL (8.5-10.1); CARBON DIOXIDE 29.1 mmol/L (21-32); CHLORIDE 96 mmol/L (98-107); COR NA(FOR HYPERGLY) 136 mmol/L (136-145); CREATININE 1.25 mg/dL (0.55-1.02); SODIUM 134 mmol/L (136-145); TOTAL PROTEIN 8.1 g/dL (6.4-8.2); eGFR NON BLACK RACES 48 (>60)
[2020-03-24] MEDS: TESSALON PERLES PO SCH ×3 (05:34→22:03)
[2020-03-24 05:36] LABS: GIANT PLATELET FEW; HYPOCHROMASIA SLIGHT; MICROCYTOSIS SLIGHT; PLATELET MORPHOLOGY COMMENT NORMAL (NORMAL)
[2020-03-24 05:45] LABS: ERYTHROCYTE SEDIMENTATION RATE 83 MM/HOUR (0-20)
--- NOTE | 2020-03-24 05:49 | RAD ---
STUDY: CHEST, 1 VIEWCOMPARISON: March 23, 2020HISTORY: SOBFINDINGS:There is a round-shaped opacified structure over the patient's right upper thorax. Diffuse alveolar airspace disease in the right and left lung is unchanged from prior exam. Cardiomegaly is suggested. The cardiomediastinal contour remains stable. Trachea is midline. No gross pleural effusion is seen. No gross evidence of pneumothorax.IMPRESSION:There is no significant change from prior study.Electronically signed by: Robert Pulido (March 24, 2020 05:48:01)
--- NOTE | 2020-03-24 08:46 | PCM.PROG ---
Progress Note - Progress Note for Day of Date of Exam: 03/23/20 - Subjective Subjective: IS BEING TREATED FOR COVID-19, PNEUMONIA, HYPOXIA, AND DIABETES. TODAY, SHE IS ALERT, LYING IN BED ON MORNING ROUNDS. SHE CONTINUES WITH COMPLAINTS OF COUGH AND SHORTNESS OF BREATH TODAY. COUGH IS PRODUCTIVE TODAY. SHE REPORTS THAT SHORTNESS OF BREATH IS SLIGHTLY WORSE TODAY. ON EXAM INATION, HEART IS REGULAR IN RATE AND RHYTHM. BILATERAL LUNGS ARE NOTED WITH SCATTERED WHEEZING AND RHONCHI THROUGHOUT. ABDOMEN IS ROUND, SOFT, AND NON- TENDER WITH NORMAL BOWEL SOUNDS NOTED IN ALL QUADRANTS. HER VITALS THIS MORNING ARE: 100.7-96-44-91%HEATED HIGH FLOW-126/66. LABS WERE OBTAINED. ABNORMAL LAB VALUES INCLUDE THE FOLLOWING: PTT 44.2, D DIMER 1140, SODIUM 135, CREATININE 1.25, CALCIUM 7.7, CRP 206.00, ALBUMIN 2.9, GLOBULIN 4.7, FERRITIN 258, CREATINE KINASE 659. BLOOD CULTURES ARE PENDING. A SPUTUM CULTURE WAS COLLECTED. A CHEST XRAY WAS OBTAINED TODAY AND REVEALED: Bilateral lung infiltrates are similar to prior study. Persistent cardiomegaly is seen and consideration should be given to pericardial effusion. CHF is not excluded. SHE IS CURRENTLY RECEIVING 1/2NS AT 75 ML/HR, ROCEPHIN 1G IV HS, AZITHROMYCIN 500MG IV DAILY, TESSALON 200MG PO TID,TUSSIONEX 5ML PO Q12H, LOVENOX 40MG SC DAILY, PLAQUENIL 200MG PO BID, SYMBICORT 160/4.5MCG 2 PUFFS INHALED BID, PROAIR INHALER 2 PUFFS Q4H, AND DIFLUCAN 100MG PO DAILY, AND THE POTASSIUM PROTOCOL. WE WILL DECREASE HER IV FLUIDS TO KVO TODAY. WE WILL REPEAT AN ABG AND START HER ON THE BIPAP. OTHERWISE, WE WILL FOLLOW UP WITH AM LABS AND CONTINUE TO MONITOR. - Past Medical Family Social History Past Med/Fam/Surg Hx: No changes since H&P Allergies: Allergies No Known Drug Allergies Allergy (Verified 03/20/20 20:17) - Review of Systems ROS: No change since H&P - Vital Signs and I&O's Vital Signs: Temperature 99.1 F Pulse Rate 108 Respiratory Rate 47 Blood Pressure 131/63 O2 Sat by Pulse Oximetry 91 Intake and Output: Intake & Output 03/21/20 03/22/20 03/23/20 03/24/20 11:59 11:59 11:59 11:59 Intake Total 830 / 830 2390 / 2390 2310 / 2310 2760 / 2760 Output Total 650 / 650 900 / 900 Balance 180 / 180 1490 / 1490 2310 / 2310 2760 / 2760 - Physical Exam Oriented: Normal Eyes: Normal Ear: Normal Nose: Normal Throat: Normal Respiratory: Generalized, Wheezes, Rhonchi Cardiovascular: Normal : Normal Auscultation: Bowel Sounds: Normal Palpation: Normal Tenderness: Normal Skin: Normal Musculoskeletal: Normal Psychiatric: Normal Mood Description: Calm Affect: Normal Speech Pattern: Clear, Appropriate - Laboratory and Diagnostics Result Diagrams: 03/24/20 04:50 03/24/20 04:50 Labs: 03/23/20 11:59 Sputum - Expectorated Sputum - Final 03/20/20 22:15 Blood Blood Culture - Preliminary 03/20/20 22:10 Blood Blood Culture - Preliminary Laboratory WBC 7.0 X10^3/uL (3.6-10.0) 03/24/20 04:50 RBC 4.82 X10^6/uL (3.5-5.4) 03/24/20 04:50 Hgb 12.0 g/dL (12.0-16.0) 03/24/20 04:50 Hct 36.1 % (36.0-47.0) 03/24/20 04:50 MCV 74.9 fL (80.0-100.0) L 03/24/20 04:50 MCH 24.8 pg (27.0-34.0) L 03/24/20 04:50 MCHC 33.1 g/dL (33.0-35.0) 03/24/20 04:50 RDW 16.7 % (11.6-16.5) H 03/24/20 04:50 Plt Count 198 X10^3/uL (150.0-450.0) 03/24/20 04:50 Plt Count Comment Adequate (ADEQUATE) 03/24/20 04:50 MPV 8.6 fL (7.4-11.0) 03/24/20 04:50 Neut % (Auto) 81.3 % (42.0-75.0) H 03/24/20 04:50 Lymph % (Auto) 13.6 % (21.0-51.0) L 03/24/20 04:50 [place] % (Auto) 4.6 % (0.0-13.0) 03/24/20 04:50 Eos % (Auto) 0.0 % (0.9-2.9) L 03/24/20 04:50 Baso % (Auto) 0.5 % (0.2-1.0) 03/24/20 04:50 Neut # (Auto) 5.7 x10^3/uL (2.2-4.8) H 03/24/20 04:50 Lymph # (Auto) 0.9 X10^3/uL (1.3-2.9) L 03/24/20 04:50 [place] # (Auto) 0.3 x10^3/uL (0.3-0.8) 03/24/20 04:50 Eos # (Auto) 0.0 x10^3/uL (0.0-0.2) 03/24/20 04:50 Baso # (Auto) 0.0 X10^3/uL (0.0-0.1) 03/24/20 04:50 Absolute Nucleated RBC 0.0 /100WBC 03/24/20 04:50 Giant Platelets Few 03/24/20 04:50 Plt Morphology Comment Normal (NORMAL) 03/24/20 04:50 RBC Morphology Abnormal (NORMAL) A 03/24/20 04:50 Hypochromasia Slight A 03/24/20 04:50 Microcytosis Slight A 03/24/20 04:50 ESR 83 MM/HOUR (0-20) H 03/24/20 04:50 PT 13.8 SECONDS (11.8-14.3) 03/23/20 09:49 INR Target Range - 03/23/20 09:49 INR 1.09 (0.8-1.3) 03/23/20 09:49 APTT 44.2 SECONDS (22.9-36.5) H 03/23/20 09:49 PTT Comment - 03/23/20 09:49 D-Dimer 1140 ng/mL (0-400) H* 03/23/20 05:30 Sample Site Lbra 03/23/20 15:40 ABG pH 7.450 (7.35-7.45) 03/23/20 15:40 ABG pCO2 40.0 mmHg (35.0-45.0) 03/23/20 15:40 ABG pO2 52.0 mmHg (80.0-100.0) L 03/23/20 15:40 ABG HCO3 27.8 mmol/L (22-26) H 03/23/20 15:40 ABG O2 Saturation 88.0 % (90-100) L 03/23/20 15:40 ABG Base Excess 3.5 mmol/L (-2.0-2.0) H 03/23/20 15:40 Clarke Test N/a 03/23/20 15:40 A-a Gradient 568.0 mmHg 03/23/20 15:40 FiO2 94.0 03/23/20 15:40 Blood Gas Comments Pt dominique well elj cdn 03/23/20 15:40 Sodium 134 mmol/L (136-145) L 03/24/20 04:50 Corrected Sodium 136 mmol/L (136-145) 03/24/20 04:50 Potassium 3.8 mmol/L (3.5-5.1) 03/24/20 04:50 Chloride 96 mmol/L (98-107) L 03/24/20 04:50 Carbon Dioxide 29.1 mmol/L (21-32) 03/24/20 04:50 BUN 14 mg/dL (7-18) 03/24/20 04:50 Creatinine 1.25 mg/dL (0.55-1.02) H 03/24/20 04:50 Est GFR (MDRD) Af Amer 58 (>60) L 03/24/20 04:50 Est GFR (MDRD) Non-Af 48 (>60) L 03/24/20 04:50 Glucose 184 mg/dL (65-99) H 03/24/20 04:50 Calcium 8.1 mg/dL (8.5-10.1) L 03/24/20 04:50 Corrected Calcium 9.0 mg/dL (8.5-10.1) 03/24/20 04:50 Magnesium 2.2 mg/dL (1.7-2.9) 03/22/20 04:39 Ferritin 318 ng/mL (8-252) H 03/24/20 04:50 Total Bilirubin 0.60 mg/dL (0.2-1.0) 03/24/20 04:50 AST 38 Units/L (15-37) H 03/24/20 04:50 ALT 29 Units/L (12-78) 03/24/20 04:50 Alkaline Phosphatase 47 Units/L (46-116) 03/24/20 04:50 Lactate Dehydrogenase 283 Units/L (81-234) H 03/21/20 08:45 Creatine Kinase 659 Units/L (26-192) H 03/23/20 05:30 CK-MB (CK-2) < 1.0 ng/mL (0-4.0) 03/23/20 05:30 CK/CKMB % Calc 0.2 % (<4) 03/23/20 05:30 Troponin I < 0.02 ng/mL (0-1.5) 03/23/20 05:30 C-Reactive Protein > 250.00 mg/L (0-3.0) H 03/24/20 04:50 Total Protein 8.1 g/dL (6.4-8.2) 03/24/20 04:50 Albumin 2.9 g/dL (3.4-5.0) L 03/24/20 04:50 Globulin 5.2 g/dL (2.5-4.5) H 03/24/20 04:50 Albumin/Globulin Ratio 0.6 Ratio (1.1-2.1) L 03/24/20 04:50 Specimen Type Clean catch urine 03/20/20 23:40 Urine Color Dark yellow (YELLOW) 03/20/20 23:40 Urine Appearance Slightly hazy (CLEAR) 03/20/20 23:40 Urine pH 5.0 (5.0 - 8.0) 03/20/20 23:40 Ur Specific [place] 1.020 (1.000-1.030) 03/20/20 23:40 Urine Protein 3+ (NEGATIVE) 03/20/20 23:40 Urine Glucose (UA) 1+ (NEGATIVE) 03/20/20 23:40 Urine Ketones 4+ (NEGATIVE) 03/20/20 23:40 Urine Occult Blood 3+ (NEGATIVE) 03/20/20 23:40 Urine Nitrite Negative (NEGATIVE) 05/17/20 23:40 Urine Bilirubin 1+ (NEGATIVE) 03/20/20 23:40 Urine Urobilinogen 2+ (NORMAL) 03/20/20 23:40 Ur Leukocyte Esterase 1+ (NEGATIVE) 03/20/20 23:40 Urine RBC 5-10 /HPF (0-3) A 03/20/20 23:40 Urine WBC 0-2 /HPF (0-5) 03/20/20 23:40 Ur Squamous Epith Cells Few /HPF (NEGATIVE) 03/20/20 23:40 Amorphous Sediment 2+ /HPF (NEGATIVE) 03/20/20 23:40 Urine Bacteria Trace /HPF (NEGATIVE) 03/20/20 23:40 Hyaline Casts Few /LPF (NEGATIVE) 03/20/20 23:40 Urine Mucus Few /HPF (NEGATIVE) 03/20/20 23:40 Ur Culture Indicated? No/not indicated 03/20/20 23:40 RSV Nasal Swab Negative (NEGATIVE) 03/20/20 23:15 Influenza Type A Ag Negative-presumptive (NEGATIVE) 03/20/20 23:15 Influenza Type B Ag Negative-presumptive (NEGATIVE) 03/20/20 23:15 S. pyogenes (TEM-PCR) Not detected (NOT DETECT) 03/20/20 23:15 - Plan (1) Pneumonia Status: Acute Qualifiers: Pneumonia type: due to unspecified organism Laterality: bilateral Lung location: lower lobe of lung Qualified Code(s): J18.9 - Pneumonia, unspecified organism Plan: BIPAP, 1/2NS AT 30 ML/HR, ROCEPHIN 1G IV HS, AZITHROMYCIN 500MG IV DAILY, TESSALON 200MG PO TID JOHN, TUSSIONEX 5ML PO Q12H, LOVENOX 40MG SC DAILY, PLAQUENIL 200MG PO BID, SYMBICORT BID, PROAIR INHALER Q4H, THE POTASSIUM PRO TOCOL, REPEAT ABG, CONTINUE TO MONITOR (2) COVID-19 virus infection Status: Acute (3) Hypoxia Status: Acute (4) Diabetes mellitus Status: Acute Qualifiers: Diabetes mellitus type: type 2 Diabetes mellitus intermediate insulin use: with intermediate use Diabetes mellitus complication status: with hyperglycemia Qualified Code(s): E11.65 - Type 2 diabetes mellitus with hyperglycemia; Z79.4 - douper (current) use of insulin
[2020-03-24 09:18] LABS: ABG ALLEN TEST POS; ABG BASE EXCESS 3.7 mmol/L (-2.0-2.0); ABG HCO3 27.7 mmol/L (22-26)
[2020-03-24] MEDS: DIFLUCAN PO SCH (09:34)
[2020-03-24] MEDS: CHLORTHALIDONE PO SCH (09:34)
[2020-03-24] MEDS: SYMBICORT INH 160/4.5 mcg IN SCH ×2 (09:35→21:35)
[2020-03-24] MEDS: VSL#3 PO SCH (09:35)
[2020-03-24] MEDS: PLAQUENIL PO SCH ×2 (09:35→20:05)
[2020-03-24] MEDS: LOVENOX INJ 40 MG SYR SC SCH (09:35)
[2020-03-24] MEDS: NORVASC TAB 10 MG PO SCH ×2 (09:35→20:05)
[2020-03-24] MEDS: MORPHINE SULFATE INJ 2 MG INJ IVP PRN ×3 (10:16→21:55)
--- NOTE | 2020-03-24 12:25 | PCM.PROG ---
Progress Note - Progress Note for Day of Date of Exam: 03/24/20 - Subjective Subjective: IS BEING TREATED FOR COVID-19, PNEUMONIA, HYPOXIA, AND DIABETES. TODAY, SHE IS ALERT, SITTING UP IN CHAIR ON MORNING ROUNDS. SHE IS UTILIZING THE BIPAP. SHE CONTINUES WITH COMPLAINTS OF COUGH AND SHORTNESS OF BREATH TODAY. COUGH IS PRODUCTIVE. SHE REPORTS THAT SHORTNESS OF BREATH HAS SLIGHTLY IMPROVED TODAY. ON EXAMINATION, HEART IS REGULAR IN RATE AND RHYTHM. BILATERAL LUNGS ARE NOTED WITH SCATTERED WHEEZING AND RHONCHI THROUGHOUT. SHE IS NOTED TO BE TACHYPNEIC. ABDOMEN IS ROUND, SOFT, AND NON-TENDER WITH NORMAL BOWEL SOUNDS NOTED IN ALL QUADRANTS. HER VITALS THIS MORNING ARE: 99.1-109-40-88%BIPAP-131/63. LABS WERE OBTAINED. ABNORMAL LAB VALUES INCLUDE THE FOLLOWING: SODIUM 134, CHLORIDE 96, CREATININE 1.25, GLUCOSE 184, CALCIUM 8.1, FERRITIN 318, AST 38, CRP >250.00, ALBUMIN 2.9, GLOBULIN 5.2. BLOOD CULTURES ARE PENDING. A SPUTUM CULTURE IS ALSO PENDING. AN ABG WAS OBTAINED AND REVEALED: PH 7.460, PC02 39.0, P02 50.0, HC03 27.7, 02 SATURATION 87.0, BASE EXCESS 3.7, Fi02 75.0. A CHEST XRAY WAS OBTAINED TODAY AND REVEALED: There is a round-shaped opacified structure over the patient's right upper thorax. Diffuse alveolar airspace disease in the right and left lung is unchanged from prior exam. Cardiomegaly is suggested. The cardiomediastinal contour remains stable. Trachea is midline. No gross pleural effusion is seen. No gross evidence of pneumothorax. SHE IS CURRENTLY RECEIVING 1/2NS AT 30 ML/HR, ROCEPHIN 1G IV HS, AZITHROMYCIN 500MG IV DAILY, TESSALON 200MG PO TID,TUSSIONEX 5ML PO Q12H, LOVENOX 40MG SC DAILY, PLAQUENIL 200MG PO BID, SYMBICORT 160/4.5MCG 2 PUFFS INHALED BID, PROAIR INHALER 2 PUFFS Q4H, AND DIFLUCAN 100MG PO DAILY, AND THE POTASSIUM PROTOCOL. WE WILL CONTINUE WITH CURRENT PLAN OF CARE TODAY. OTHERWISE, WE WILL FOLLOW UP WITH AM LABS AND CONTINUE TO MONITOR. - Past Medical Family Social History Past Med/Fam/Surg Hx: No changes since H&P Allergies: Allergies No Known Drug Allergies Allergy (Verified 03/20/20 20:17) - Review of Systems ROS: No change since H&P - Vital Signs and I&O's Vital Signs: Temperature 99.1 F Pulse Rate 109 Respiratory Rate 48 Blood Pressure 131/63 O2 Sat by Pulse Oximetry 88 Intake and Output: Intake & Output 03/22/20 03/23/20 03/24/20 03/25/20 11:59 11:59 11:59 11:59 Intake Total 2390 / 2390 2310 / 2310 2760 / 2760 Output Total 900 / 900 Balance 1490 / 1490 2310 / 2310 2760 / 2760 - Physical Exam Oriented: Normal Eyes: Normal Ear: Normal Nose: Normal Throat: Normal Respiratory: Generalized, Wheezes, Rhonchi Cardiovascular: Normal : Normal Auscultation: Bowel Sounds: Normal Palpation: Normal Tenderness: Normal Skin: Normal Musculoskeletal: Normal Psychiatric: Normal Mood Description: Calm Affect: Normal Speech Pattern: Clear, Appropriate - Laboratory and Diagnostics Result Diagrams: 03/24/20 04:50 03/24/20 04:50 Labs: 03/23/20 11:59 Sputum - Expectorated Sputum Sputum Culture - Preliminary 03/23/20 11:59 Sputum - Expectorated Sputum - Final 03/20/20 22:15 Blood Blood Culture - Preliminary 03/20/20 22:10 Blood Blood Culture - Preliminary Laboratory WBC 7.0 X10^3/uL (3.6-10.0) 03/24/20 04:50 RBC 4.82 X10^6/uL (3.5-5.4) 03/24/20 04:50 Hgb 12.0 g/dL (12.0-16.0) 03/24/20 04:50 Hct 36.1 % (36.0-47.0) 03/24/20 04:50 MCV 74.9 fL (80.0-100.0) L 03/24/20 04:50 MCH 24.8 pg (27.0-34.0) L 03/24/20 04:50 MCHC 33.1 g/dL (33.0-35.0) 03/24/20 04:50 RDW 16.7 % (11.6-16.5) H 03/24/20 04:50 Plt Count 198 X10^3/uL (150.0-450.0) 03/24/20 04:50 Plt Count Comment Adequate (ADEQUATE) 03/24/20 04:50 MPV 8.6 fL (7.4-11.0) 03/24/20 04:50 Neut % (Auto) 81.3 % (42.0-75.0) H 03/24/20 04:50 Lymph % (Auto) 13.6 % (21.0-51.0) L 03/24/20 04:50 [place] % (Auto) 4.6 % (0.0-13.0) 03/24/20 04:50 Eos % (Auto) 0.0 % (0.9-2.9) L 03/24/20 04:50 Baso % (Auto) 0.5 % (0.2-1.0) 03/24/20 04:50 Neut # (Auto) 5.7 x10^3/uL (2.2-4.8) H 03/24/20 04:50 Lymph # (Auto) 0.9 X10^3/uL (1.3-2.9) L 03/24/20 04:50 [place] # (Auto) 0.3 x10^3/uL (0.3-0.8) 03/24/20 04:50 Eos # (Auto) 0.0 x10^3/uL (0.0-0.2) 03/24/20 04:50 Baso # (Auto) 0.0 X10^3/uL (0.0-0.1) 03/24/20 04:50 Absolute Nucleated RBC 0.0 /100WBC 03/24/20 04:50 Giant Platelets Few 03/24/20 04:50 Plt Morphology Comment Normal (NORMAL) 03/24/20 04:50 RBC Morphology Abnormal (NORMAL) A 03/24/20 04:50 Hypochromasia Slight A 03/24/20 04:50 Microcytosis Slight A 03/24/20 04:50 ESR 83 MM/HOUR (0-20) H 03/24/20 04:50 PT 13.8 SECONDS (11.8-14.3) 03/23/20 09:49 INR Target Range - 03/23/20 09:49 INR 1.09 (0.8-1.3) 03/23/20 09:49 APTT 44.2 SECONDS (22.9-36.5) H 03/23/20 09:49 PTT Comment - 03/23/20 09:49 D-Dimer 1140 ng/mL (0-400) H* 03/23/20 05:30 Sample Site Lr 03/24/20 09:12 ABG pH 7.460 (7.35-7.45) H 03/24/20 09:12 ABG pCO2 39.0 mmHg (35.0-45.0) 03/24/20 09:12 ABG pO2 50.0 mmHg (80.0-100.0) L 03/24/20 09:12 ABG HCO3 27.7 mmol/L (22-26) H 03/24/20 09:12 ABG O2 Saturation 87.0 % (90-100) L 03/24/20 09:12 ABG Base Excess 3.7 mmol/L (-2.0-2.0) H 03/24/20 09:12 Clarke Test Pos 03/24/20 09:12 A-a Gradient 436.0 mmHg 03/24/20 09:12 FiO2 75.0 03/24/20 09:12 Blood Gas Comments [place] well aw cb 03/24/20 09:12 Sodium 134 mmol/L (136-145) L 03/24/20 04:50 Corrected Sodium 136 mmol/L (136-145) 03/24/20 04:50 Potassium 3.8 mmol/L (3.5-5.1) 03/24/20 04:50 Chloride 96 mmol/L (98-107) L 03/24/20 04:50 Carbon Dioxide 29.1 mmol/L (21-32) 03/24/20 04:50 BUN 14 mg/dL (7-18) 03/24/20 04:50 Creatinine 1.25 mg/dL (0.55-1.02) H 03/24/20 04:50 Est GFR (MDRD) Af Amer 58 (>60) L 03/24/20 04:50 Est GFR (MDRD) Non-Af 48 (>60) L 03/24/20 04:50 Glucose 184 mg/dL (65-99) H 03/24/20 04:50 Calcium 8.1 mg/dL (8.5-10.1) L 03/24/20 04:50 Corrected Calcium 9.0 mg/dL (8.5-10.1) 03/24/20 04:50 Magnesium 2.2 mg/dL (1.7-2.9) 03/22/20 04:39 Ferritin 318 ng/mL (8-252) H 03/24/20 04:50 Total Bilirubin 0.60 mg/dL (0.2-1.0) 03/24/20 04:50 AST 38 Units/L (15-37) H 03/24/20 04:50 ALT 29 Units/L (12-78) 03/24/20 04:50 Alkaline Phosphatase 47 Units/L (46-116) 03/24/20 04:50 Lactate Dehydrogenase 283 Units/L (81-234) H 03/21/20 08:45 Creatine Kinase 659 Units/L (26-192) H 03/23/20 05:30 CK-MB (CK-2) < 1.0 ng/mL (0-4.0) 03/23/20 05:30 CK/CKMB % Calc 0.2 % (<4) 03/23/20 05:30 Troponin I < 0.02 ng/mL (0-1.5) 03/23/20 05:30 C-Reactive Protein > 250.00 mg/L (0-3.0) H 03/24/20 04:50 Total Protein 8.1 g/dL (6.4-8.2) 03/24/20 04:50 Albumin 2.9 g/dL (3.4-5.0) L 03/24/20 04:50 Globulin 5.2 g/dL (2.5-4.5) H 03/24/20 04:50 Albumin/Globulin Ratio 0.6 Ratio (1.1-2.1) L 03/24/20 04:50 Specimen Type Clean catch urine 03/20/20 23:40 Urine Color Dark yellow (YELLOW) 03/20/20 23:40 Urine Appearance Slightly hazy (CLEAR) 03/20/20 23:40 Urine pH 5.0 (5.0 - 8.0) 03/20/20 23:40 Ur Specific [place] 1.020 (1.000-1.030) 03/20/20 23:40 Urine Protein 3+ (NEGATIVE) 03/20/20 23:40 Urine Glucose (UA) 1+ (NEGATIVE) 03/20/20 23:40 Urine Ketones 4+ (NEGATIVE) 03/20/20 23:40 Urine Occult Blood 3+ (NEGATIVE) 03/20/20 23:40 Urine Nitrite Negative (NEGATIVE) 03/20/20 23:40 Urine Bilirubin 1+ (NEGATIVE) 03/20/20 23:40 Urine Urobilinogen 2+ (NORMAL) 03/20/20 23:40 Ur Leukocyte Esterase 1+ (NEGATIVE) 03/20/20 23:40 Urine RBC 5-10 /HPF (0-3) A 03/20/20 23:40 Urine WBC 0-2 /HPF (0-5) 03/20/20 23:40 Ur Squamous Epith Cells Few /HPF (NEGATIVE) 03/20/20 23:40 Amorphous Sediment 2+ /HPF (NEGATIVE) 03/20/20 23:40 Urine Bacteria Trace /HPF (NEGATIVE) 03/20/20 23:40 Hyaline Casts Few /LPF (NEGATIVE) 03/20/20 23:40 Urine Mucus Few /HPF (NEGATIVE) 03/20/20 23:40 Ur Culture Indicated? No/not indicated 03/20/20 23:40 RSV Nasal Swab Negative (NEGATIVE) 03/20/20 23:15 Influenza Type A Ag Negative-presumptive (NEGATIVE) 03/20/20 23:15 Influenza Type B Ag Negative-presumptive (NEGATIVE) 03/20/20 23:15 S. pyogenes (TEM-PCR) Not detected (NOT DETECT) 03/20/20 23:15 - Plan (1) Pneumonia Status: Acute Qualifiers: Pneumonia type: due to unspecified organism Laterality: bilateral Lung location: lower lobe of lung Qualified Code(s): J18.9 - Pneumonia, unspecified organism Plan: BIPAP, 1/2NS AT 30 ML/HR, ROCEPHIN 1G IV HS, AZITHROMYCIN 500MG IV DAILY, TESSALON 200MG PO TID JOHN, TUSSIONEX 5ML PO Q12H, LOVENOX 40MG SC DAILY, PLAQUENIL 200MG PO BID, SYMBICORT BID, PROAIR INHALER Q4H, THE POTASSIUM PROTOCOL, REPEAT ABG, CONTINUE TO MONITOR (2) COVID-19 virus infection Status: Acute (3) Hypoxia Status: Acute (4) Diabetes mellitus Status: Acute Qualifiers: Diabetes mellitus type: type 2 Diabetes mellitus usp insulin use: with intermediate designer use Diabetes mellitus complication status: with hyperglycemia Qualified Code(s): E11.65 - Type 2 diabetes mellitus with hyperglycemia; Z79.4 - prison (current) use of insulin
[2020-03-24] MEDS: NS 1/2 1000 ML IV 1,000 ML IV SCH (14:33)
[2020-03-24] MEDS ORDERED: GLUCOPHAGE ONE (19:32)
[2020-03-24] MEDS ORDERED: NS 1/2 1000 ML IV 1,000 ML IV ONE (19:35)
[2020-03-24] MEDS: GLUCOPHAGE PO SCH (20:05)
[2020-03-24] MEDS: JANUVIA PO SCH (20:06)
[2020-03-24] MEDS: RESTORIL CAP 30 MG PO SCH (20:07)
[2020-03-24] MEDS: ROCEPHIN VIAL 1 GRAM 1 G in NS 100 ML IV + SPIKE MINIBAG* 100 ML IV SCH (20:08)
[2020-03-24] MEDS: TYLENOL 325 MG TAB PO PRN (20:09)
[2020-03-24] MEDS: ZITHROMAX INJ 500 MG VIAL 500 MG in D5W 250 ML IV 250 ML IV SCH (22:04)
[2020-03-25] MEDS: TYLENOL 325 MG TAB PO PRN ×3 (00:03→20:06)
[2020-03-25] MEDS: NS 1/2 1000 ML IV 1,000 ML IV SCH ×2 (01:26→16:35)
[2020-03-25] MEDS: VENTOLIN or PROAIR HFA IN SCH ×6 (01:38→21:45)
[2020-03-25] MEDS: TUSSIONEX PENNKINETIC SUSP PO SCH ×2 (02:15→14:07)
[2020-03-25] MEDS: TESSALON PERLES PO SCH ×3 (05:03→21:36)
--- NOTE | 2020-03-25 06:14 | RAD ---
HISTORYShortness of breathSTUDYCHEST, 1 [id number]/2020FINDINGSThe heart is enlarged. No definite congestive heart failure is noted. Right lower lobe and left perihilar infiltrates are unchanged from the prior examination. No pleural effusions are identified. The bony thorax is unremarkable.IMPRESSIONNo change cardiomegaly without congestive heart failureNo change right lower lobe and left perihilar infiltratesElectronically signed by: DENICE THOMPSON (March 25, 2020 06:12:30)
[2020-03-25 06:42] LABS: ABG BASE EXCESS 4.3 mmol/L (-2.0-2.0); ABG HCO3 29.2 mmol/L (22-26)
[2020-03-25 07:21] LABS: BASOPHILS # (AUTO) 0.1 X10^3/uL (0.0-0.1); BASOPHILS % (AUTO) 0.6 % (0.2-1.0); EOSINOPHILS % (AUTO) 0.2 % (0.9-2.9); HEMATOCRIT 34.4 % (36.0-47.0); HEMOGLOBIN 11.3 g/dL (12.0-16.0); LYMPHOCYTES # (AUTO) 0.8 X10^3/uL (1.3-2.9); LYMPHOCYTES % (AUTO) 8.9 % (21.0-51.0); MEAN CORPUSCULAR HEMOGLOBIN 24.7 pg (27.0-34.0); MEAN CORPUSCULAR HGB CONC 32.8 g/dL (33.0-35.0); MEAN CORPUSCULAR VOLUME 75.2 fL (80.0-100.0); MEAN PLATELET VOLUME 8.6 fL (7.4-11.0); MONOCYTES # (AUTO) 0.4 x10^3/uL (0.3-0.8); MONOCYTES % (AUTO) 4.4 % (0.0-13.0); NEUTROPHILS # (AUTO) 7.9 x10^3/uL (2.2-4.8); NEUTROPHILS % (AUTO) 85.9 % (42.0-75.0); PLATELET COUNT 222 X10^3/uL (150.0-450.0); RED BLOOD COUNT 4.58 X10^6/uL (3.5-5.4); RED CELL DISTRIBUTION WIDTH 16.7 % (11.6-16.5); WHITE BLOOD COUNT 9.1 X10^3/uL (3.6-10.0)
[2020-03-25 07:30] LABS: ALBUMIN 2.6 g/dL (3.4-5.0); CALCIUM 7.7 mg/dL (8.5-10.1); CARBON DIOXIDE 28.8 mmol/L (21-32); COR CA(FOR HYPOALB) 8.8 mg/dL (8.5-10.1); CREATININE 1.48 mg/dL (0.55-1.02); TOTAL PROTEIN 7.9 g/dL (6.4-8.2)
[2020-03-25 07:31] LABS: PLATELET MORPHOLOGY COMMENT NORMAL (NORMAL)
[2020-03-25 07:55] LABS: ERYTHROCYTE SEDIMENTATION RATE 82 MM/HOUR (0-20)
[2020-03-25] MEDS: VSL#3 PO SCH (08:30)
[2020-03-25] MEDS: PLAQUENIL PO SCH ×2 (08:31→20:07)
[2020-03-25] MEDS: DIFLUCAN PO SCH (08:31)
[2020-03-25] MEDS: CHLORTHALIDONE PO SCH (08:31)
[2020-03-25] MEDS: NORVASC TAB 10 MG PO SCH ×2 (08:31→20:07)
[2020-03-25] MEDS: LOVENOX INJ 40 MG SYR SC SCH (08:32)
[2020-03-25] MEDS: SYMBICORT INH 160/4.5 mcg IN SCH ×2 (11:40→21:45)
[2020-03-25 11:58] LABS: ABG BASE EXCESS 3.7 mmol/L (-2.0-2.0); ABG HCO3 28.5 mmol/L (22-26)
[2020-03-25 11:59] LABS: ABG ALLEN TEST POS
[2020-03-25] MEDS ORDERED: GLUCOPHAGE ONE (19:57)
[2020-03-25] MEDS: GLUCOPHAGE PO SCH (20:06)
[2020-03-25] MEDS: RESTORIL CAP 30 MG PO SCH (20:07)
[2020-03-25] MEDS: JANUVIA PO SCH (20:07)
[2020-03-25] MEDS: ROCEPHIN VIAL 1 GRAM 1 G in NS 100 ML IV + SPIKE MINIBAG* 100 ML IV SCH (20:07)
[2020-03-25] MEDS: ZITHROMAX INJ 500 MG VIAL 500 MG in D5W 250 ML IV 250 ML IV SCH (21:36)
[2020-03-26] MEDS: VENTOLIN or PROAIR HFA IN SCH ×3 (01:35→09:45)
[2020-03-26] MEDS: TYLENOL 325 MG TAB PO PRN ×2 (02:05→08:59)
[2020-03-26] MEDS: TUSSIONEX PENNKINETIC SUSP PO SCH (02:05)
[2020-03-26 05:31] LABS: BASOPHILS # (AUTO) 0.1 X10^3/uL (0.0-0.1); BASOPHILS % (AUTO) 0.5 % (0.2-1.0); EOSINOPHILS # (AUTO) 0.1 x10^3/uL (0.0-0.2); EOSINOPHILS % (AUTO) 0.5 % (0.9-2.9); HEMATOCRIT 32.6 % (36.0-47.0); HEMOGLOBIN 10.8 g/dL (12.0-16.0); LYMPHOCYTES # (AUTO) 0.9 X10^3/uL (1.3-2.9); LYMPHOCYTES % (AUTO) 8.2 % (21.0-51.0); MEAN CORPUSCULAR HEMOGLOBIN 24.9 pg (27.0-34.0); MEAN CORPUSCULAR HGB CONC 33.1 g/dL (33.0-35.0); MEAN CORPUSCULAR VOLUME 75.4 fL (80.0-100.0); MEAN PLATELET VOLUME 8.5 fL (7.4-11.0); MONOCYTES # (AUTO) 0.5 x10^3/uL (0.3-0.8); MONOCYTES % (AUTO) 4.4 % (0.0-13.0); NEUTROPHILS # (AUTO) 9.3 x10^3/uL (2.2-4.8); NEUTROPHILS % (AUTO) 86.4 % (42.0-75.0); PLATELET COUNT 229 X10^3/uL (150.0-450.0); RED BLOOD COUNT 4.32 X10^6/uL (3.5-5.4); RED CELL DISTRIBUTION WIDTH 17.3 % (11.6-16.5); WHITE BLOOD COUNT 10.8 X10^3/uL (3.6-10.0)
[2020-03-26 05:37] LABS: PLATELET MORPHOLOGY COMMENT NORMAL (NORMAL)
--- NOTE | 2020-03-26 05:39 | RAD ---
HISTORYSOBSTUDYAP [id number] cardiac enlargement although cardiac borders are partly ob scured by increasing confluent airspace disease in both lungs. The diaphragm surfaces, retrocardiac a rhys and costophrenic sulci are obscured. No definite pneumothorax is seen.IMPRESSIONStable cardiomega ly. Increasing bilateral pulmonary densities consistent with pneumonia/atelectasis or pulmonary edema . Pleural fluid on the left may be present.Electronically signed by: TERRANCE ORTIZ (March 26, 2020 05: 38:01)
[2020-03-26] MEDS: NS 1/2 1000 ML IV 1,000 ML IV SCH (06:04)
[2020-03-26] MEDS: TESSALON PERLES PO SCH (06:05)
[2020-03-26 06:11] LABS: ERYTHROCYTE SEDIMENTATION RATE 104 MM/HOUR (0-20)
[2020-03-26 06:29] LABS: ALBUMIN 2.5 g/dL (3.4-5.0); CALCIUM 8.3 mg/dL (8.5-10.1); CARBON DIOXIDE 28.7 mmol/L (21-32); COR CA(FOR HYPOALB) 9.5 mg/dL (8.5-10.1); CREATININE 1.38 mg/dL (0.55-1.02); TOTAL PROTEIN 7.9 g/dL (6.4-8.2)
[2020-03-26 06:44] LABS: ABG BASE EXCESS 4.4 mmol/L (-2.0-2.0); ABG HCO3 28.4 mmol/L (22-26)
[2020-03-26] MEDS: CHLORTHALIDONE PO SCH (08:56)
[2020-03-26] MEDS: VSL#3 PO SCH (08:56)
[2020-03-26] MEDS ORDERED: DIPRIVAN VIAL ONE (08:56)
[2020-03-26] MEDS: LOVENOX INJ 40 MG SYR SC SCH (08:56)
[2020-03-26] MEDS: DIFLUCAN PO SCH (08:56)
[2020-03-26] MEDS ORDERED: VERSED ONE (08:56)
[2020-03-26] MEDS ORDERED: QUELICIN (OR ANECTINE) ONE (08:56)
[2020-03-26] MEDS ORDERED: NORCURON INJ 10 MG VIAL ONE (08:56)
[2020-03-26] MEDS: NORVASC TAB 10 MG PO SCH (08:57)
[2020-03-26] MEDS: PLAQUENIL PO SCH (08:57)
[2020-03-26] MEDS: SYMBICORT INH 160/4.5 mcg IN SCH ×2 (09:30→09:45)
--- NOTE | 2020-03-26 10:52 | W.DIS.FURT ---
Summary of Discharge Discharge Summary of Date Date of Exam: 03/26/20 Admission Date Date of Admission: 03/20/20 Admission Diagnosis Patient Problems (Updated 03/23/20 @ 10:18 by Ifeanyi Ellis) Pneumonia (Acute) J18.9 Hypoxia (Acute) R09.02 Exposure to COVID-19 virus (Acute) Z20.828 Diabetes mellitus (Acute) E11.9 COVID-19 virus infection (Acute) U07.1 Hospital Course: Pt is a 49 yo f pmhx HTN, DMT2, admitted for COVID-19 pneumonia that was reported on 03/21/2020. Initially she refused intubation and wanted to be on BiPAP but has progressively worsened. She was placed on protocol of plaquenil and azithromycin. ABG this morning. pH 7.47/39/61/28/93% on FiO2 100% on BiPaP. BP 122/67, P 105, R 50. CXR: Increasing bilateral pulmonary densities c/w pneumonia/atelectasis or pulmonary edema. On exam patient visibly having labored breathing, diaphoretic, with diminished breath sounds and wheezing. Heart:Tachycardic, ABD:+BS, nontender, non-distended, EXT:no edema. Labs: Wbc 10.8, Hgb 10.8, Plt 229, ESR 104, CRP 407, Na 136, K 4.4, Cr 1.38, Gluc 200. Pt was intubated and placed on mechanical ventilator for acute respiratory failure and hypoxemia. She will be transferred to [place], [place]. Critical care time spent 30-74 minutes. Vital Signs: Vital Signs (72 hours) 03/23/20 11:00 03/23/20 11:30 03/23/20 11:40 Temperature Pulse Rate 103 H 105 H Respiratory Rate 37 H 18 43 H Blood Pressure 121/60 O2 Sat by Pulse Oximetry 89 L 92 L 03/23/20 12:00 03/23/20 12:30 03/23/20 13:00 Temperature 103.2 F H Pulse Rate 102 H 100 H Respiratory Rate 41 H 18 44 H Blood Pressure 115/57 O2 Sat by Pulse Oximetry 91 L 87 L 03/23/20 14:00 03/23/20 15:00 03/23/20 16:03 Temperature 100 F H Pulse Rate 93 H 94 H 107 H Respiratory Rate 43 H 47 H Blood Pressure 111/58 O2 Sat by Pulse Oximetry 92 L 91 L 03/23/20 16:08 03/23/20 17:00 03/23/20 18:00 Temperature Pulse Rate 104 H 105 H 109 H Respiratory Rate 36 H Blood Pressure 125/66 139/65 O2 Sat by Pulse Oximetry 92 L 93 L 92 L 03/23/20 19:00 03/23/20 20:00 03/23/20 20:33 Temperature 99.7 F H Pulse Rate 109 H 109 H 110 H Respiratory Rate 34 H Blood Pressure 151/68 O2 Sat by Pulse Oximetry 92 L 90 L 93 L 03/23/20 20:34 03/23/20 21:00 03/23/20 21:14 Temperature Pulse Rate 107 H Respiratory Rate 40 H 50 H 48 H Blood Pressure O2 Sat by Pulse Oximetry 88 L 03/23/20 21:44 03/23/20 22:00 03/23/20 23:00 Temperature 99.4 F Pulse Rate 100 H 101 H Respiratory Rate 48 H 48 H 40 H Blood Pressure 112/55 O2 Sat by Pulse Oximetry 89 L 91 L 03/24/20 00:00 03/24/20 01:00 03/24/20 01:15 Temperature Pulse Rate 103 H 100 H 112 H Respiratory Rate 40 H 46 H Blood Pressure 113/56 O2 Sat by Pulse Oximetry 87 L 89 L 93 L 03/24/20 02:00 03/24/20 03:00 03/24/20 04:00 Temperature 99.6 F Pulse Rate 108 H 104 H 105 H Respiratory Rate 43 H 47 H 43 H Blood Pressure 122/62 124/67 O2 Sat by Pulse Oximetry 91 L 91 L 90 L 03/24/20 05:00 03/24/20 05:50 03/24/20 06:00 Temperature Pulse Rate 104 H 110 H 105 H Respiratory Rate 48 H 41 H Blood Pressure 132/63 O2 Sat by Pulse Oximetry 90 L 93 L 90 L 03/24/20 07:00 03/24/20 08:00 03/24/20 09:00 Temperature 99.1 F Pulse Rate 104 H 108 H 109 H Respiratory Rate 44 H 47 H 44 H Blood Pressure 131/63 O2 Sat by Pulse Oximetry 88 L 91 L 89 L 03/24/20 09:35 03/24/20 10:00 03/24/20 10:02 Temperature Pulse Rate 109 H 110 H Respiratory Rate Blood Pressure 130/66 O2 Sat by Pulse Oximetry 88 L 86 L 03/24/20 10:16 03/24/20 10:46 03/24/20 11:00 Temperature Pulse Rate 100 H Respiratory Rate 48 H 41 H 44 H Blood Pressure O2 Sat by Pulse Oximetry 86 L 03/24/20 12:00 03/24/20 12:50 03/24/20 13:00 Temperature 98.2 F Pulse Rate 101 H 99 H 100 H Respiratory Rate 51 H 54 H Blood Pressure 119/58 O2 Sat by Pulse Oximetry 89 L 90 L 88 L 03/24/20 14:00 03/24/20 14:33 03/24/20 15:02 Temperature Pulse Rate 101 H Respiratory Rate 47 H 45 H Blood Pressure 112/62 O2 Sat by Pulse Oximetry 86 L 03/24/20 15:03 03/24/20 16:00 03/24/20 17:00 Temperature 99.1 F Pulse Rate 103 H 109 H Respiratory Rate 40 H 42 H 44 H Blood Pressure 114/60 O2 Sat by Pulse Oximetry 91 L 93 L 03/24/20 17:25 03/24/20 20:00 03/24/20 20:09 Temperature 100 F H Pulse Rate 107 H 102 H Respiratory Rate 39 H 33 H Blood Pressure 118/60 O2 Sat by Pulse Oximetry 93 L 92 L 03/24/20 21:00 03/24/20 21:09 03/24/20 21:35 Temperature Pulse Rate 109 H 109 H Respiratory Rate 44 H 41 H Blood Pressure 125/73 O2 Sat by Pulse Oximetry 91 L 90 L 03/24/20 21:55 03/24/20 22:25 03/25/20 00:00 Temperature 101.3 F H Pulse Rate 96 H Respiratory Rate 40 H 41 H 41 H Blood Pressure 122/69 O2 Sat by Pulse Oximetry 91 L 03/25/20 01:25 03/25/20 01:38 03/25/20 02:25 Temperature Pulse Rate 104 H Respiratory Rate 39 H 42 H Blood Pressure O2 Sat by Pulse Oximetry 92 L 03/25/20 03:00 03/25/20 04:00 03/25/20 08:00 Temperature 98.7 F 99.1 F Pulse Rate 97 H 96 H 109 H Respiratory Rate 42 H 42 H 45 H Blood Pressure 108/60 110/64 135/70 O2 Sat by Pulse Oximetry 89 L 92 L 92 L 03/25/20 11:40 03/25/20 12:00 03/25/20 16:00 Temperature 99.7 F H 99.4 F Pulse Rate 110 H 112 H 111 H Respiratory Rate 49 H 48 H Blood Pressure 136/74 125/68 O2 Sat by Pulse Oximetry 89 L 90 L 92 L 03/25/20 17:25 03/25/20 20:00 03/25/20 20:06 Temperature 100.1 F H Pulse Rate 108 H 108 H Respiratory Rate 44 H 42 H Blood Pressure 121/67 O2 Sat by Pulse Oximetry 91 L 90 L 03/25/20 21:00 03/25/20 21:06 03/25/20 22:00 Temperature Pulse Rate 107 H 106 H Respiratory Rate 37 H 41 H 41 H Blood Pressure 125/68 125/66 O2 Sat by Pulse Oximetry 89 L 89 L 03/25/20 23:00 03/26/20 00:00 03/26/20 01:00 Temperature 100.1 F H Pulse Rate 108 H 104 H 110 H Respiratory Rate 41 H 43 H 43 H Blood Pressure 133/64 124/74 108/59 O2 Sat by Pulse Oximetry 91 L 94 L 96 03/26/20 02:00 03/26/20 02:05 03/26/20 03:00 Temperature Pulse Rate 104 H 102 H Respiratory Rate 41 H 39 H 42 H Blood Pressure 108/59 113/61 O2 Sat by Pulse Oximetry 93 L 92 L 03/26/20 03:05 03/26/20 04:00 03/26/20 05:00 Temperature Pulse Rate 103 H 107 H Respiratory Rate 41 H 43 H 43 H Blood Pressure 115/66 141/67 O2 Sat by Pulse Oximetry 91 L 89 L 03/26/20 06:00 03/26/20 07:00 03/26/20 07:20 Temperature Pulse Rate 104 H 105 H 105 H Respiratory Rate 44 H 48 H 50 H Blood Pressure 125/64 122/67 O2 Sat by Pulse Oximetry 93 L 95 95 03/26/20 08:59 Temperature Pulse Rate Respiratory Rate 45 H Blood Pressure O2 Sat by Pulse Oximetry Labs: Laboratory Last Values WBC 10.8 X10^3/uL (3.6-10.0) H 03/26/20 04:55 RBC 4.32 X10^6/uL (3.5-5.4) 03/26/20 04:55 Hgb 10.8 g/dL (12.0-16.0) L 03/26/20 04:55 Hct 32.6 % (36.0-47.0) L 03/26/20 04:55 MCV 75.4 fL (80.0-100.0) L 03/26/20 04:55 MCH 24.9 pg (27.0-34.0) L 03/26/20 04:55 MCHC 33.1 g/dL (33.0-35.0) 03/26/20 04:55 RDW 17.3 % (11.6-16.5) H 03/26/20 04:55 Plt Count 229 X10^3/uL (150.0-450.0) 03/26/20 04:55 Plt Count Comment Adequate (ADEQUATE) 03/26/20 04:55 MPV 8.5 fL (7.4-11.0) 03/26/20 04:55 Neut % (Auto) 86.4 % (42.0-75.0) H 03/26/20 04:55 Lymph % (Auto) 8.2 % (21.0-51.0) L 03/26/20 04:55 [place] % (Auto) 4.4 % (0.0-13.0) 03/26/20 04:55 Eos % (Auto) 0.5 % (0.9-2.9) L 03/26/20 04:55 Baso % (Auto) 0.5 % (0.2-1.0) 03/26/20 04:55 Neut # (Auto) 9.3 x10^3/uL (2.2-4.8) H 03/26/20 04:55 Lymph # (Auto) 0.9 X10^3/uL (1.3-2.9) L 03/26/20 04:55 [place] # (Auto) 0.5 x10^3/uL (0.3-0.8) 03/26/20 04:55 Eos # (Auto) 0.1 x10^3/uL (0.0-0.2) 03/26/20 04:55 Baso # (Auto) 0.1 X10^3/uL (0.0-0.1) 03/26/20 04:55 Absolute Nucleated RBC 0.1 /100WBC 03/26/20 04:55 Giant Platelets Few 03/24/20 04:50 Plt Morphology Comment Normal (NORMAL) 03/26/20 04:55 RBC Morphology Normal (NORMAL) 03/26/20 04:55 Hypochromasia Slight A 03/24/20 04:50 Microcytosis Slight A 03/24/20 04:50 ESR 104 MM/HOUR (0-20) H 03/26/20 04:55 PT 13.8 SECONDS (11.8-14.3) 03/23/20 09:49 INR Target Range - 03/23/20 09:49 INR 1.09 (0.8-1.3) 03/23/20 09:49 APTT 44.2 SECONDS (22.9-36.5) H 03/23/20 09:49 PTT Comment - 03/23/20 09:49 D-Dimer 1140 ng/mL (0-400) H* 03/23/20 05:30 Sample Site Lbra 03/26/20 06:39 ABG pH 7.470 (7.35-7.45) H 03/26/20 06:39 ABG pCO2 39.0 mmHg (35.0-45.0) 03/26/20 06:39 ABG pO2 61.0 mmHg (80.0-100.0) L 03/26/20 06:39 ABG HCO3 28.4 mmol/L (22-26) H 03/26/20 06:39 ABG O2 Saturation 93.0 % (90-100) 03/26/20 06:39 ABG Base Excess 4.4 mmol/L (-2.0-2.0) H 03/26/20 06:39 Clarke Test Na 03/26/20 06:39 A-a Gradient 603.0 mmHg 03/26/20 06:39 FiO2 100.0 03/26/20 06:39 Blood Gas Comments [place] abg well-mtf 03/26/20 06:39 Sodium 136 mmol/L (136-145) 03/26/20 04:55 Corrected Sodium 138 mmol/L (136-145) 03/26/20 04:55 Potassium 4.4 mmol/L (3.5-5.1) 03/26/20 04:55 Chloride 99 mmol/L (98-107) 03/26/20 04:55 Carbon Dioxide 28.7 mmol/L (21-32) 03/26/20 04:55 BUN 31 mg/dL (7-18) H 03/26/20 04:55 Creatinine 1.38 mg/dL (0.55-1.02) H 03/26/20 04:55 Est GFR (MDRD) Af Amer 52 (>60) L 03/26/20 04:55 Est GFR (MDRD) Non-Af 43 (>60) L 03/26/20 04:55 Glucose 200 mg/dL (65-99) H 03/26/20 04:55 Calcium 8.3 mg/dL (8.5-10.1) L 03/26/20 04:55 Corrected Calcium 9.5 mg/dL (8.5-10.1) 03/26/20 04:55 Magnesium 2.2 mg/dL (1.7-2.9) 03/22/20 04:39 Ferritin 366 ng/mL (8-252) H 03/26/20 04:55 Total Bilirubin 0.60 mg/dL (0.2-1.0) 03/26/20 04:55 AST 70 Units/L (15-37) H 03/26/20 04:55 ALT 46 Units/L (12-78) 03/26/20 04:55 Alkaline Phosphatase 65 Units/L (46-116) 03/26/20 04:55 Lactate Dehydrogenase 283 Units/L (81-234) H 03/21/20 08:45 Creatine Kinase 659 Units/L (26-192) H 03/23/20 05:30 CK-MB (CK-2) < 1.0 ng/mL (0-4.0) 03/23/20 05:30 CK/CKMB % Calc 0.2 % (<4) 03/23/20 05:30 Troponin I < 0.02 ng/mL (0-1.5) 03/23/20 05:30 C-Reactive Protein 407.50 mg/L (0-3.0) H 03/26/20 04:55 Total Protein 7.9 g/dL (6.4-8.2) 03/26/20 04:55 Albumin 2.5 g/dL (3.4-5.0) L 03/26/20 04:55 Globulin 5.4 g/dL (2.5-4.5) H 03/26/20 04:55 Albumin/Globulin Ratio 0.5 Ratio (1.1-2.1) L 03/26/20 04:55 Specimen Type Clean catch urine 03/20/20 23:40 Urine Color Dark yellow (YELLOW) 03/20/20 23:40 Urine Appearance Slightly hazy (CLEAR) 03/20/20 23:40 Urine pH 5.0 (5.0 - 8.0) 03/20/20 23:40 Ur Specific [place] 1.020 (1.000-1.030) 03/20/20 23:40 Urine Protein 3+ (NEGATIVE) 03/20/20 23:40 Urine Glucose (UA) 1+ (NEGATIVE) 03/20/20 23:40 Urine Ketones 4+ (NEGATIVE) 03/20/20 23:40 Urine Occult Blood 3+ (NEGATIVE) 03/20/20 23:40 Urine Nitrite Negative (NEGATIVE) 03/20/20 23:40 Urine Bilirubin 1+ (NEGATIVE) 03/20/20 23:40 Urine Urobilinogen 2+ (NORMAL) 03/20/20 23:40 Ur Leukocyte Esterase 1+ (NEGATIVE) 03/20/20 23:40 Urine RBC 5-10 /HPF (0-3) A 03/20/20 23:40 Urine WBC 0-2 /HPF (0-5) 03/20/20 23:40 Ur Squamous Epith Cells Few /HPF (NEGATIVE) 03/20/20 23:40 Amorphous Sediment 2+ /HPF (NEGATIVE) 03/20/20 23:40 Urine Bacteria Trace /HPF (NEGATIVE) 03/20/20 23:40 Hyaline Casts Few /LPF (NEGATIVE) 03/20/20 23:40 Urine Mucus Few /HPF (NEGATIVE) 03/20/20 23:40 Ur Culture Indicated? No/not indicated 03/20/20 23:40 RSV Nasal Swab Negative (NEGATIVE) 03/20/20 23:15 Influenza Type A Ag Negative-presumptive (NEGATIVE) 03/20/20 23:15 Influenza Type B Ag Negative-presumptive (NEGATIVE) 03/20/20 23:15 S. pyogenes (TEM-PCR) Not detected (NOT DETECT) 03/20/20 23:15 Reason For Visit: PNEMONIA, HYPOXIA, DM Discharge Date Discharge Date: 03/26/20 Discharge Diagnosis All Active Problems (Updated 03/23/20 @ 10:18 by Ifeanyi Ellis) Pneumonia (Acute) Hypoxia (Acute) Exposure to COVID-19 virus (Acute) Diabetes mellitus (Acute) COVID-19 virus infection (Acute) Plan of Treatment: Continue with present treatment and follow up plan. Pt is to keep follow up appointment as instructed and take medications as ordered. Discharge Medications Discharge Medications: No Known Drug Allergies Allergy (Verified 03/20/20 20:17) CONTINUE taking the following medications Janumet 2 tab PO HS 03/20/20 [History] amlodipine 10 mg PO BID 03/20/20 [History] benzonatate 200 mg PO BID PRN 03/20/20 [History] chlorthalidone 25 mg PO DAILY 03/20/20 [History] codeine-guaifenesin [Guaiatussin AC] 5 ml PO Q8H PRN 03/20/20 [History] ergocalciferol (vitamin D2) [Vitamin D2] 1,250 mcg PO WEEKLY 03/20/20 [History] oxycodone-acetaminophen 7.5 tab PO QID PRN 03/20/20 [History] temazepam 30 mg PO HS 03/20/20 [History] Discharge Disposition Discharge Disposition: Transfer [place], [place] Discharge Condition: Guarded
[2020-03-26] MEDS ORDERED: DIPRIVAN PREMIX 1 GRAM IV 1,000 MG/100 ML VIAL ONE ×2 (12:18→12:28)
[2020-03-26] MEDS ORDERED: DIPRIVAN VIAL 20 ML ONE (12:18)
[2020-03-26 12:42] VITALS: BP 112/67
--- NOTE | 2020-03-26 13:01 | DR.UPDATE ---
H&P Update History and Physical Update: History and Physical reviewed and patient examined. Changes noted: NO Yes with the following:Agree with H&P. Pt examined. will intubate for Resp distress/covid H&P Reviewed: Yes Patient was examined?: Yes Procedures (ALL) - Intubation Time out performed: Yes Sedative: other (propofol 160mg, versed 1mg) paralytic: succinylchline (120mg, norcuron 10mg after spontaneous resp returned. propofol gtt 25cc/hr for transport) Laryngoscope: fiber optic video scope (glidescope 3) ET tube size: 7.5 Tube secured depth: 21 Tube secured location: teeth Tube placement confirmation: visualized tube passing through cords, equal breath sounds bilaterally, no breath sounds over epigastrium, comfirmation by capnometer Patient tolerated procedure: Yes Intubation complications: none
--- NOTE | 2020-03-29 09:57 | PCM.PROG ---
Progress Note - Progress Note for Day of Date of Exam: 03/25/20 - Subjective Subjective: IS BEING TREATED FOR COVID-19, PNEUMONIA, HYPOXIA, AND DIABETES. TODAY, SHE IS ALERT AND ORIENTED, SITTING UP IN CHAIR ON MORNING ROUNDS. SHE IS UTILIZING THE BIPAP. SHE CONTINUES WITH COMPLAINTS OF COUGH AND SHORTNESS OF BREATH TODAY. COUGH IS PRODUCTIVE. SHE REPORTS THAT SHORTNESS OF BREATH IS ABOUT THE SAME TODAY. ON EXAMINATION, SHE IS TACHYCARDIC WITH HR 100- 110. REGULAR HEART RHYTHM. BILATERAL LUNGS ARE NOTED WITH SCATTERED WHEEZING AND RHONCHI THROUGHOUT. SHE CONTINUES TO BE TACHYPNEIC. ABDOMEN IS ROUND, SOFT, AND NON-TENDER WITH NORMAL BOWEL SOUNDS NOTED IN ALL QUADRANTS. HER VITALS THIS MORNING ARE: 99.1-109-45-92%BIPAP-135/70. LABS WERE OBTAINED. ABNORMAL LAB VALUES INCLUDE THE FOLLOWING: HGB 11.3, HCT 34.4, ESR 82, BUN 25, CREATININE 1.48, GLUCOSE 191, CALCIUM 7.7, FERRITIN 368, AST 50, CRP 355.30, ALBUMIN 2.6, GLOBULIN 5.3. BLOOD CULTURES ARE PENDING. A SPUTUM CULTURE IS ALSO PENDING. AN ABG WAS OBTAINED AND REVEALED: PH 7.430, PC02 43.0, P02 58.0, HC03 28.5, 02 SATURATION 91.0, BASE EXCESS 3.7, Fi02 100.0. A CHEST XRAY WAS OBTAINED TODAY AND REVEALED: No change cardiomegaly without congestive heart failure. No change right lower lobe and left perihilar infiltrates. I CONTINUED TO ENCOURAGE VENTILATION WITH THE MECHANICAL VENTILATOR, BASED ON HER ABGs. PATIENT, WHO IS ALERT, ORIENTED, AND OF SOUND MIND, CONTINUES TO REFUSE TO BE PLACED ON THE MECHANICAL VENTILATOR AT THIS TIME. PATIENT STATES, IF I START FEELING WORSE, I WILL BE PUT ON IT, BUT I DONT FEEL THAT BAD RIGHT NOW. SHE IS CURRENTLY RECEIVING 1/2NS AT 30 ML/HR, ROCEPHIN 1G IV HS, AZITHROMYCIN 500MG IV DAILY, TESSALON 200MG PO TID,TUSSIONEX 5ML PO Q12H, LOVENOX 40MG SC DAILY, PLAQUENIL 200MG PO BID, SYMBICORT 160/4.5MCG 2 PUFFS INHALED BID, PROAIR INHALER 2 PUFFS Q4H, AND DIFLUCAN 100MG PO DAILY, AND THE POTASSIUM PROTOCOL. WE WILL CONTINUE WITH CURRENT PLAN OF CARE TODAY AND RECHECK AN ABG AROUND 11:30 TODAY. I WILL PASS REPORT ON TO , WHO IS SHAKE FEEDER THIS WEEKEND. OTHERWISE, WE WILL CONTINUE TO MONITOR. - Past Medical Family Social History Past Med/Fam/Surg Hx: No changes since H&P Allergies: Allergies No Known Drug Allergies Allergy (Verified 03/20/20 20:17) - Review of Systems ROS: No change since H&P - Vital Signs and I&O's Vital Signs: Temperature 101.9 F Pulse Rate 132 Respiratory Rate 27 Blood Pressure 112/67 O2 Sat by Pulse Oximetry 58 Intake and Output: Intake & Output 03/26/20 03/27/20 03/28/20 03/29/20 11:59 11:59 11:59 11:59 Intake Total 1003 / 1003 Balance 1003 / 1003 - Physical Exam Oriented: Normal Eyes: Normal Ear: Normal Nose: Normal Throat: Normal Respiratory: Generalized, Wheezes, Rhonchi Cardiovascular: Tachycardia. negative: S3, S4, Murmur : Normal Auscultation: Bowel Sounds: Normal Palpation: Normal Tenderness: Normal Skin: Normal Musculoskeletal: Normal Psychiatric: Normal Mood Description: Calm Affect: Normal Speech Pattern: Clear, Appropriate - Laboratory and Diagnostics Result Diagrams: 03/26/20 04:55 03/26/20 04:55 Labs: 03/26/20 11:30 Urine,Clean Catch Urine Culture - Final 03/20/20 22:15 Blood Blood Culture - Final 03/20/20 22:10 Blood Blood Culture - Final 03/23/20 11:59 Sputum - Expectorated Sputum Sputum Culture - Final 03/23/20 11:59 Sputum - Expectorated Sputum - Final Laboratory WBC 10.8 X10^3/uL (3.6-10.0) H 03/26/20 04:55 RBC 4.32 X10^6/uL (3.5-5.4) 03/26/20 04:55 Hgb 10.8 g/dL (12.0-16.0) L 03/26/20 04:55 Hct 32.6 % (36.0-47.0) L 03/26/20 04:55 MCV 75.4 fL (80.0-100.0) L 03/26/20 04:55 MCH 24.9 pg (27.0-34.0) L 03/26/20 04:55 MCHC 33.1 g/dL (33.0-35.0) 03/26/20 04:55 RDW 17.3 % (11.6-16.5) H 03/26/20 04:55 Plt Count 229 X10^3/uL (150.0-450.0) 03/26/20 04:55 Plt Count Comment Adequate (ADEQUATE) 03/26/20 04:55 MPV 8.5 fL (7.4-11.0) 03/26/20 04:55 Neut % (Auto) 86.4 % (42.0-75.0) H 03/26/20 04:55 Lymph % (Auto) 8.2 % (21.0-51.0) L 03/26/20 04:55 [place] % (Auto) 4.4 % (0.0-13.0) 03/26/20 04:55 Eos % (Auto) 0.5 % (0.9-2.9) L 03/26/20 04:55 Baso % (Auto) 0.5 % (0.2-1.0) 03/26/20 04:55 Neut # (Auto) 9.3 x10^3/uL (2.2-4.8) H 03/26/20 04:55 Lymph # (Auto) 0.9 X10^3/uL (1.3-2.9) L 03/26/20 04:55 [place] # (Auto) 0.5 x10^3/uL (0.3-0.8) 03/26/20 04:55 Eos # (Auto) 0.1 x10^3/uL (0.0-0.2) 03/26/20 04:55 Baso # (Auto) 0.1 X10^3/uL (0.0-0.1) 03/26/20 04:55 Absolute Nucleated RBC 0.1 /100WBC 03/26/20 04:55 Giant Platelets Few 03/24/20 04:50 Plt Morphology Comment Normal (NORMAL) 03/26/20 04:55 RBC Morphology Normal (NORMAL) 03/26/20 04:55 Hypochromasia Slight A 03/24/20 04:50 Microcytosis Slight A 03/24/20 04:50 ESR 104 MM/HOUR (0-20) H 03/26/20 04:55 PT 13.8 SECONDS (11.8-14.3) 03/23/20 09:49 INR Target Range - 03/23/20 09:49 INR 1.09 (0.8-1.3) 03/23/20 09:49 APTT 44.2 SECONDS (22.9-36.5) H 03/23/20 09:49 PTT Comment - 03/23/20 09:49 D-Dimer 1140 ng/mL (0-400) H* 03/23/20 05:30 Sample Site Lbra 03/26/20 06:39 ABG pH 7.470 (7.35-7.45) H 03/26/20 06:39 ABG pCO2 39.0 mmHg (35.0-45.0) 03/26/20 06:39 ABG pO2 61.0 mmHg (80.0-100.0) L 03/26/20 06:39 ABG HCO3 28.4 mmol/L (22-26) H 03/26/20 06:39 ABG O2 Saturation 93.0 % (90-100) 03/26/20 06:39 ABG Base Excess 4.4 mmol/L (-2.0-2.0) H 03/26/20 06:39 Clarke Test Na 03/26/20 06:39 A-a Gradient 603.0 mmHg 03/26/20 06:39 FiO2 100.0 03/26/20 06:39 Blood Gas Comments [place] abg well-mtf 03/26/20 06:39 Sodium 136 mmol/L (136-145) 03/26/20 04:55 Corrected Sodium 138 mmol/L (136-145) 03/26/20 04:55 Potassium 4.4 mmol/L (3.5-5.1) 03/26/20 04:55 Chloride 99 mmol/L (98-107) 03/26/20 04:55 Carbon Dioxide 28.7 mmol/L (21-32) 03/26/20 04:55 BUN 31 mg/dL (7-18) H 03/26/20 04:55 Creatinine 1.38 mg/dL (0.55-1.02) H 03/26/20 04:55 Est GFR (MDRD) Af Amer 52 (>60) L 03/26/20 04:55 Est GFR (MDRD) Non-Af 43 (>60) L 03/26/20 04:55 Glucose 200 mg/dL (65-99) H 03/26/20 04:55 Calcium 8.3 mg/dL (8.5-10.1) L 03/26/20 04:55 Corrected Calcium 9.5 mg/dL (8.5-10.1) 03/26/20 04:55 Magnesium 2.2 mg/dL (1.7-2.9) 03/22/20 04:39 Ferritin 366 ng/mL (8-252) H 03/26/20 04:55 Total Bilirubin 0.60 mg/dL (0.2-1.0) 03/26/20 04:55 AST 70 Units/L (15-37) H 03/26/20 04:55 ALT 46 Units/L (12-78) 03/26/20 04:55 Alkaline Phosphatase 65 Units/L (46-116) 03/26/20 04:55 Lactate Dehydrogenase 283 Units/L (81-234) H 03/21/20 08:45 Creatine Kinase 659 Units/L (26-192) H 03/23/20 05:30 CK-MB (CK-2) < 1.0 ng/mL (0-4.0) 03/23/20 05:30 CK/CKMB % Calc 0.2 % (<4) 03/23/20 05:30 Troponin I < 0.02 ng/mL (0-1.5) 03/23/20 05:30 C-Reactive Protein 407.50 mg/L (0-3.0) H 03/26/20 04:55 Total Protein 7.9 g/dL (6.4-8.2) 03/26/20 04:55 Albumin 2.5 g/dL (3.4-5.0) L 03/26/20 04:55 Globulin 5.4 g/dL (2.5-4.5) H 03/26/20 04:55 Albumin/Globulin Ratio 0.5 Ratio (1.1-2.1) L 03/26/20 04:55 Specimen Type Clean catch urine 03/20/20 23:40 Urine Color Dark yellow (YELLOW) 03/20/20 23:40 Urine Appearance Slightly hazy (CLEAR) 03/20/20 23:40 Urine pH 5.0 (5.0 - 8.0) 03/20/20 23:40 Ur Specific [place] 1.020 (1.000-1.030) 03/20/20 23:40 Urine Protein 3+ (NEGATIVE) 03/20/20 23:40 Urine Glucose (UA) 1+ (NEGATIVE) 03/20/20 23:40 Urine Ketones 4+ (NEGATIVE) 03/20/20 23:40 Urine Occult Blood 3+ (NEGATIVE) 03/20/20 23:40 Urine Nitrite Negative (NEGATIVE) 03/20/20 23:40 Urine Bilirubin 1+ (NEGATIVE) 03/20/20 23:40 Urine Urobilinogen 2+ (NORMAL) 03/20/20 23:40 Ur Leukocyte Esterase 1+ (NEGATIVE) 03/20/20 23:40 Urine RBC 5-10 /HPF (0-3) A 03/20/20 23:40 Urine WBC 0-2 /HPF (0-5) 03/20/20 23:40 Ur Squamous Epith Cells Few /HPF (NEGATIVE) 03/20/20 23:40 Amorphous Sediment 2+ /HPF (NEGATIVE) 03/20/20 23:40 Urine Bacteria Trace /HPF (NEGATIVE) 03/20/20 23:40 Hyaline Casts Few /LPF (NEGATIVE) 03/20/20 23:40 Urine Mucus Few /HPF (NEGATIVE) 03/20/20 23:40 Ur Culture Indicated? No/not indicated 03/20/20 23:40 RSV Nasal Swab Negative (NEGATIVE) 03/20/20 23:15 Influenza Type A Ag Negative-presumptive (NEGATIVE) 03/20/20 23:15 Influenza Type B Ag Negative-presumptive (NEGATIVE) 03/20/20 23:15 S. pyogenes (TEM-PCR) Not detected (NOT DETECT) 03/20/20 23:15 - Plan (1) Pneumonia Status: Acute Qualifiers: Pneumonia type: due to unspecified organism Laterality: bilateral Lung location: lower lobe of lung Qualified Code(s): J18.9 - Pneumonia, unspecified organism Plan: BIPAP, 1/2NS AT 30 ML/HR, ROCEPHIN 1G IV HS, AZITHROMYCIN 500MG IV DAILY, TESSALON 200MG PO TID JOHN, TUSSIONEX 5ML PO Q12H, LOVENOX 40MG SC DAILY, PLAQUENIL 200MG PO BID, SYMBICORT BID, PROAIR INHALER Q4H, THE POTASSIUM PROTOCOL, REPEAT ABG, CONTINUE TO MONITOR (2) COVID-19 virus infection Status: Acute (3) Hypoxia Status: Acute (4) Diabetes mellitus Status: Acute Qualifiers: Diabetes mellitus type: type 2 Diabetes mellitus buttermaker continuous churn insulin use: with detention use Diabetes mellitus complication status: with hyperglycemia Qualified Code(s): E11.65 - Type 2 diabetes mellitus with hyperglycemia; Z79.4 - ferry terminal agent (current) use of insulin
== END 2020-03-26 12:40 | disposition short-term general hospital (02) | DRG 208 ==
LOC: ER 20:08 → ICU 23:20
PROVIDERS: ADMIT Internal Medicine; ATTEND Internal Medicine
DX: R06.02 Shortness of breath; E11.65 Type 2 diabetes mellitus with hyperglycemia; R07.89 Other chest pain; U07.1 COVID-19; Z79.4 Long term (current) use of insulin; R79.82 Elevated C-reactive protein (CRP); R06.03 Acute respiratory distress; I10 Essential (primary) hypertension; R50.9 Fever, unspecified; J12.89 Other viral pneumonia
CPT/HCPCS: 36415; 36600; 71010; 71045; 80053; 81001; 82550; 82553; 82728; 82803; 83615; 83735; 84132; 84484; 85025; 85378; 85610; 85652; 85730; 86140; 87040; 87070; 87086; 87205; 87400; 87420; 87651; 87804; 93005; 94640; 94660; 96365; 96374; 96375; 99284; A4216; A4222; A4618; A7030; J0330; J0456; J0696; J1650; J2250; J2270; J2704; J3475; J3490; J7050; J7060